=== PATIENT | female | born 1945 | race African-American/Black ===

== ENCOUNTER → 2016-12-14 | Outpatient (CLI) | payer MEDICARE, MEDICAID ==
[~2016-12-14] MED LIST: ASPI-1079 PO; CLOP75TA2 PO; EZ-HD(BARIUM SULFATE 135ML BTL) PO ONE; FERR256T PO; LOSA25TA3 PO; OMEP20CA4 PO; TRAM150C26 PO; UNKNOWN MEDICATIONS
== END | disposition home or self-care (01) ==
LOC: RAD 12:45
PROVIDERS: ATTEND Internal Medicine Endocrinology, Diabetes & Metabolism
DX: J98.4 Other disorders of lung (principal); R13.10 Dysphagia, unspecified
CPT/HCPCS: 74220

== ENCOUNTER → 2017-01-15 | Outpatient (CLI) | payer MEDICARE, MEDICAID ==
[~2017-01-15] MED LIST changes: -EZ-HD(BARIUM SULFATE 135ML BTL) PO ONE
== END | disposition home or self-care (01) ==
LOC: CT 08:18
PROVIDERS: ATTEND Surgery
DX: E04.1 Nontoxic single thyroid nodule (principal)
CPT/HCPCS: 70490

== ENCOUNTER 2017-01-18 09:10 | Emergency (ER) | payer MEDICARE, MEDICAID ==
[~2017-01-18] VITALS: Ht 162.6 cm; Wt 57.0 kg
[2017-01-18 10:38] LABS: BASOPHILS % 0.5 % (0.0-2.0); EOSINOPHILS % 2.2 % (0.0-5.0); HEMATOCRIT. 32.6 % (36.0-48.0); HEMOGLOBIN. 10.6 g/dL (12.0-16.0); LYMPHOCYTES % 23.8 % (20.0-50.0); MEAN CORPUSCULAR VOLUME 88.6 fL (81.0-99.0); MONOCYTES % 8.2 % (2.0-8.0); NEUTROPHILS % 65.3 % (40.0-76.0); PLATELET 230 x1000/uL (130-400); RED BLOOD CELL COUNT 3.68 mill/uL (4.2-5.4); RED CELL DISTRIBUTION WIDTH 14.7 % (11.6-14.6)
[2017-01-18 10:50] LABS: PROTHROMBIN TIME 10.5 sec
[2017-01-18 10:52] LABS: CARBON DIOXIDE 27 mEq/L (21-32); CHLORIDE 111 mEq/L (98-107)
[2017-01-18 11:40] LABS: CLARITY URINE CLEAR (CLEAR); COLOR URINE YELLOW (YELLOW); GLUCOSE URINE NEGATIVE (NEGATIVE); KETONES URINE NEGATIVE (NEGATIVE); LEUKOCYTE ESTERASE URINE NEGATIVE (NEGATIVE); NITRITE URINE NEGATIVE (NEGATIVE); OCCULT BLOOD URINE NEGATIVE (NEGATIVE); PROTEIN URINE NEGATIVE (NEGATIVE); SPECIFIC GRAVITY URINE 1.011 (1.005-1.030); UROBILINOGEN URINE 0.2 E.U./dL (0.2-1.0)
[2017-01-18 12:24] VITALS: BP 168/84
== END 2017-01-18 13:43 | disposition home or self-care (01) ==
LOC: ER 09:10 → CANBEDREQ 20:09
DX: K80.20 Calculus of gallbladder without cholecystitis without obstruction (principal); I10 Essential (primary) hypertension; J02.9 Acute pharyngitis, unspecified; I63.9 Cerebral infarction, unspecified; M19.90 Unspecified osteoarthritis, unspecified site; R13.10 Dysphagia, unspecified; Z99.3 Dependence on wheelchair; Z88.2 Allergy status to sulfonamides; Z79.82 Long term (current) use of aspirin
CPT/HCPCS: 36415; 74022; 80053; 81003; 83690; 85025; 85610; 85730; 93005; 99285

== ENCOUNTER → 2017-03-05 | Outpatient (CLI) | payer MEDICARE, MEDICAID ==
[~2017-03-05] MED LIST changes: +CLOP75TA16 PO; -CLOP75TA2 PO; -TRAM150C26 PO; +TRAM150C40 PO
[2017-03-05 10:26] LABS: BASOPHILS % 1.9 % (0.0-2.0); EOSINOPHILS % 2.8 % (0.0-5.0); HEMATOCRIT. 35.6 % (36.0-48.0); HEMOGLOBIN. 11.7 g/dL (12.0-16.0); MEAN CORPUSCULAR HEMOGLOBIN 28.2 pg (28.0-32.0); MEAN CORPUSCULAR VOLUME 85.6 fL (81.0-99.0); MEAN PLATELET VOLUME 6.8 fl (7.4-10.4); MONOCYTES % 7.7 % (2.0-8.0); NEUTROPHILS % 53.6 % (40.0-76.0); PLATELET 230 x1000/uL (130-400); RED BLOOD CELL COUNT 4.16 mill/uL (4.2-5.4); RED CELL DISTRIBUTION WIDTH 15.5 % (11.6-14.6)
[2017-03-05 10:31] LABS: CLARITY URINE CLEAR (CLEAR); COLOR URINE YELLOW (YELLOW); GLUCOSE URINE NEGATIVE (NEGATIVE); KETONES URINE NEGATIVE (NEGATIVE); LEUKOCYTE ESTERASE URINE NEGATIVE (NEGATIVE); NITRITE URINE NEGATIVE (NEGATIVE); OCCULT BLOOD URINE NEGATIVE (NEGATIVE); PH URINE 6.5 (4.5-8.0); PROTEIN URINE NEGATIVE (NEGATIVE); SPECIFIC GRAVITY URINE 1.018 (1.005-1.030)
[2017-03-05 10:57] LABS: CARBON DIOXIDE 28 mEq/L (21-32); CHLORIDE 108 mEq/L (98-107)
== END | disposition home or self-care (01) ==
LOC: LAB 09:53
DX: I10 Essential (primary) hypertension (principal); E04.1 Nontoxic single thyroid nodule
CPT/HCPCS: 36415; 80048; 81003; 85025

== ENCOUNTER → 2017-03-06 | Outpatient (CLI) | payer MEDICARE, MEDICAID | END | disposition home or self-care (01) | LOC: RAD 13:54 | DX: Z01.818 Encounter for other preprocedural examination (principal) | CPT/HCPCS: 71020 ==

== ENCOUNTER → 2017-10-09 | Outpatient (CLI) | payer MEDICARE, MEDICAID ==
[~2017-10-09] MED LIST changes: +DOCU-155 PO; +IOHEXOL-300 100 ML BOTTLE ONE; +LEVO500T2 PO; +PRED10TA23 PO; +TRAM150C25 PO; -TRAM150C40 PO; -UNKNOWN MEDICATIONS
== END | disposition home or self-care (01) ==
LOC: CT 09:31
PROVIDERS: ATTEND Anesthesiology Critical Care Medicine
DX: R90.82 White matter disease, unspecified (principal); I11.9 Hypertensive heart disease without heart failure; I67.82 Cerebral ischemia; J44.0 Chronic obstructive pulmonary disease with (acute) lower respiratory infection; Z79.82 Long term (current) use of aspirin; Z79.899 Other long term (current) drug therapy; Z86.73 Personal history of transient ischemic attack (TIA), and cerebral infarction without residual deficits
CPT/HCPCS: 70470; 93880; Q9967

== ENCOUNTER 2017-12-27 19:58 | Inpatient (IN) | payer MEDICARE, MEDICAID ==
[~2017-12-27] VITALS: Ht 160 cm; Wt 61.2 kg
[~2017-12-27 19:58] MED LIST changes: -ASPI-1079 PO; -IOHEXOL-300 100 ML BOTTLE ONE; -TRAM150C25 PO
[2017-12-27 21:27] LABS: BG BASE EXCESS -3.5 mmol/L (-2.0-2.0); BG DEOXYHEMOGLOBIN 5.6 % (0.0-5.0); BG FRACTION INSPIRED OXYGEN 100; BG HCO3 ACT 27.9 mmol/L (22.0-26.0); BG METHEMOGLOBIN 0.2 % (0.0-1.5); BG OXYGEN SATURATION 94.3 % (92.0-98.5); BG OXYHEMOGLOBIN 93.2 % (94.0-97.0); BG PCO2 88.3 mmHg (35.0-45.0); BG PH 7.117 (7.350-7.450); BG PO2 93.7 mmHg (75.0-100.0); BG SAMPLE SITE RIGHT RADIAL; BG TOTAL HEMOGLOBIN 12.8 g/dL (12.0-18.0); BG VENT MODE MASK - NRB
[2017-12-27] MEDS ORDERED: SUCCINYLCHOLINE CHLORIDE 200MG/10ML VIAL IV ONE (21:45)
[2017-12-27] MEDS ORDERED: ETOMIDATE 2MG/ML 10ML VIAL IV ONE (21:45)
[2017-12-27] MEDS ORDERED: PROPOFOL 10MG/ML 100ML 100 ML IV SCH (22:00)
[2017-12-27 22:23] LABS: BG CARBOXYHEMOGLOBIN 0.7 % (0.5-1.5); BG DEOXYHEMOGLOBIN 1.7 % (0.0-5.0); BG FRACTION INSPIRED OXYGEN 100; BG HCO3 ACT 25.7 mmol/L (22.0-26.0); BG METHEMOGLOBIN 0.3 % (0.0-1.5); BG OXYGEN SATURATION 98.3 % (92.0-98.5); BG OXYHEMOGLOBIN 97.3 % (94.0-97.0); BG PCO2 46.4 mmHg (35.0-45.0); BG PH 7.362 (7.350-7.450); BG PO2 119.1 mmHg (75.0-100.0); BG SAMPLE SITE LEFT RADIAL; BG TIDAL VOLUME(mL) 450 mL; BG TOTAL HEMOGLOBIN 12.6 g/dL (12.0-18.0); BG VENT MODE VENT - A/C; BG VENT RATE 14 set
[2017-12-27 23:16] LABS: HEMATOCRIT. 39.3 % (36.0-48.0); HEMOGLOBIN. 12.4 g/dL (12.0-16.0); MEAN CORPUSCULAR HEMOGLOBIN 26.4 pg (28.0-32.0); MEAN CORPUSCULAR VOLUME 83.4 fL (81.0-99.0); MEAN PLATELET VOLUME 7.5 fl (7.4-10.4); PLATELET 254 x1000/uL (130-400); RED CELL DISTRIBUTION WIDTH 16.6 % (11.6-14.6)
[2017-12-27 23:23] LABS: CHLORIDE 96 mEq/L (98-107); PROTHROMBIN TIME 10.3 sec (9.4-11.6)
[2017-12-27 23:30] LABS: AMMONIA 16 uMol/L (<32)
[2017-12-27] MEDS ORDERED: ASPIRIN 300MG SUPP PR ONE (23:30)
[2017-12-27 23:32] LABS: CREATINE KINASE 176 IU/L (26-192)
[2017-12-27 23:44] LABS: ETHANOL BLOOD < 10 mg/dL
[2017-12-28] VITALS (46 sets, daily range): BP systolic 80–141; BP diastolic 54–80
[2017-12-28] MEDS ORDERED: MIDAZOLAM HCL 2 MG/2 ML VIAL IV ONE (00:15)
[2017-12-28 01:01] LABS: CLARITY URINE CLEAR (CLEAR); COLOR URINE YELLOW (YELLOW); KETONES URINE TRACE (NEGATIVE); LEUKOCYTE ESTERASE URINE NEGATIVE (NEGATIVE); NITRITE URINE NEGATIVE (NEGATIVE); OCCULT BLOOD URINE NEGATIVE (NEGATIVE); PROTEIN URINE 1+ (NEGATIVE); SPECIFIC GRAVITY URINE 1.018 (1.005-1.030); UROBILINOGEN URINE 0.2 E.U./dL (0.2-1.0)
[2017-12-28 01:24] LABS: *AMPHETAMINES SCREEN URINE NEGATIVE (NEGATIVE); *BARBITURATES SCREEN URINE NEGATIVE (NEGATIVE); *BENZODIAZEPINES SCREEN URINE PRESUMTIVE POSITIVE (NEGATIVE); CANNABINOID URINE SCREEN PRESUMTIVE POSITIVE (NEGATIVE)
[2017-12-28 01:25] LABS: *COCAINE SCREEN URINE NEGATIVE (NEGATIVE); METHADONE URINE SCREEN NEGATIVE (NEGATIVE); OPIATES URINE SCREEN PRESUMTIVE POSITIVE (NEGATIVE)
[2017-12-28 01:28] LABS: PHENCYCLIDINE URINE SCREEN NEGATIVE (NEGATIVE)
[2017-12-28 02:46] LABS: PLATELET ESTIMATE NORMAL
[2017-12-28 14:45] LABS: BG CARBOXYHEMOGLOBIN 0.1 % (0.5-1.5); BG DEOXYHEMOGLOBIN 1.3 % (0.0-5.0); BG FRACTION INSPIRED OXYGEN 100; BG HCO3 ACT 23.7 mmol/L (22.0-26.0); BG METHEMOGLOBIN 0.1 % (0.0-1.5); BG OXYGEN SATURATION 98.7 % (92.0-98.5); BG OXYHEMOGLOBIN 98.5 % (94.0-97.0); BG PCO2 28.3 mmHg (35.0-45.0); BG PO2 139.3 mmHg (75.0-100.0); BG SAMPLE SITE RIGHT RADIAL; BG TIDAL VOLUME(mL) 450 mL; BG TOTAL HEMOGLOBIN 12.5 g/dL (12.0-18.0); BG VENT MODE VENT - A/C; BG VENT RATE 14 set
[2017-12-28] MEDS: PROPOFOL 10MG/ML 100ML 100 ML IV PRN (15:35)
[2017-12-28 16:30] LABS: CREATINE KINASE MB FRACTION 5.7 ng/mL (0.5-3.6)
[2017-12-28 16:53] LABS: BG BASE EXCESS 5.3 mmol/L (-2.0-2.0); BG CARBOXYHEMOGLOBIN 0.2 % (0.5-1.5); BG DEOXYHEMOGLOBIN 1.6 % (0.0-5.0); BG HCO3 ACT 27.1 mmol/L (22.0-26.0); BG METHEMOGLOBIN 0.1 % (0.0-1.5); BG OXYGEN SATURATION 98.4 % (92.0-98.5); BG OXYHEMOGLOBIN 98.1 % (94.0-97.0); BG PCO2 31.3 mmHg (35.0-45.0); BG PH 7.556 (7.350-7.450); BG PO2 117.2 mmHg (75.0-100.0); BG SAMPLE SITE RIGHT RADIAL; BG TIDAL VOLUME(mL) 450 mL; BG TOTAL HEMOGLOBIN 12.9 g/dL (12.0-18.0); BG VENT MODE VENT - A/C; BG VENT RATE 14 set
[2017-12-28 18:21] LABS: BG BASE EXCESS 2.7 mmol/L (-2.0-2.0); BG CARBOXYHEMOGLOBIN 0.5 % (0.5-1.5); BG DEOXYHEMOGLOBIN 2.2 % (0.0-5.0); BG METHEMOGLOBIN 0.3 % (0.0-1.5); BG OXYGEN SATURATION 97.8 % (92.0-98.5); BG PCO2 27.4 mmHg (35.0-45.0); BG PO2 100.5 mmHg (75.0-100.0); BG SAMPLE SITE RIGHT RADIAL; BG TIDAL VOLUME(mL) 450 mL; BG TOTAL HEMOGLOBIN 12.4 g/dL (12.0-18.0); BG VENT MODE VENT - A/C; BG VENT RATE 14 set
[2017-12-28] MEDS: DEXT 5%/0.45% NACL 1000ML 1,000 ML IV SCH (18:21)
[2017-12-28] MEDS: IPRATROPIUM/ALBUTEROL 0.5-3(2.5)MG/3ML NEB HHN SCH ×2 (20:20→23:50)
[2017-12-28 23:20] LABS: CREATINE KINASE MB FRACTION 2.9 ng/mL (0.5-3.6)
[2017-12-29] VITALS (87 sets, daily range): BP systolic 80–126; BP diastolic 40–72
[2017-12-29] MEDS: IPRATROPIUM/ALBUTEROL 0.5-3(2.5)MG/3ML NEB HHN SCH ×6 (03:18→23:36)
[2017-12-29] MEDS: PROPOFOL 10MG/ML 100ML 100 ML IV PRN ×2 (05:14→17:28)
[2017-12-29 05:16] LABS: BASOPHILS % 0.5 % (0.0-2.0); EOSINOPHILS % 0.2 % (0.0-5.0); HEMATOCRIT. 34.7 % (36.0-48.0); HEMOGLOBIN. 11.3 g/dL (12.0-16.0); LYMPHOCYTES % 8.8 % (20.0-50.0); MEAN CORPUSCULAR HEMOGLOBIN 26.5 pg (28.0-32.0); MEAN CORPUSCULAR VOLUME 81.5 fL (81.0-99.0); MEAN PLATELET VOLUME 7.8 fl (7.4-10.4); MONOCYTES % 8.9 % (2.0-8.0); NEUTROPHILS % 81.6 % (40.0-76.0); PLATELET 222 x1000/uL (130-400); RED BLOOD CELL COUNT 4.26 mill/uL (4.2-5.4); RED CELL DISTRIBUTION WIDTH 16.6 % (11.6-14.6)
[2017-12-29 05:40] LABS: CHLORIDE 103 mEq/L (98-107)
[2017-12-29 05:49] LABS: PHOSPHORUS 2.3 mg/dL (2.5-4.9)
[2017-12-29 05:52] LABS: CREATINE KINASE 324 IU/L (26-192)
[2017-12-29 05:55] LABS: CREATINE KINASE MB FRACTION 2.2 ng/mL (0.5-3.6)
[2017-12-29 08:12] LABS: BG BASE EXCESS 7.6 mmol/L (-2.0-2.0); BG CARBOXYHEMOGLOBIN 0.9 % (0.5-1.5); BG DEOXYHEMOGLOBIN 3.8 % (0.0-5.0); BG FRACTION INSPIRED OXYGEN 80; BG HCO3 ACT 30.8 mmol/L (22.0-26.0); BG METHEMOGLOBIN 0.1 % (0.0-1.5); BG OXYGEN SATURATION 96.2 % (92.0-98.5); BG OXYHEMOGLOBIN 95.2 % (94.0-97.0); BG PCO2 38.1 mmHg (35.0-45.0); BG PH 7.525 (7.350-7.450); BG PO2 81.1 mmHg (75.0-100.0); BG SAMPLE SITE RIGHT RADIAL; BG TIDAL VOLUME(mL) 450 mL; BG TOTAL HEMOGLOBIN 14.2 g/dL (12.0-18.0); BG VENT MODE VENT - A/C; BG VENT RATE 14 set
[2017-12-29] MEDS: ACETAMINOPHEN 325MG TABLET PO PRN (08:36)
[2017-12-29] MEDS: PANTOPRAZOLE SODIUM 40 MG/VIAL IV SCH (08:36)
[2017-12-29] MEDS: DEXT 5%/0.45% NACL 1000ML 1,000 ML IV SCH (10:18)
[2017-12-29] MEDS ORDERED: CALCIUM CHLORIDE 1,000 MG in DEXT 5% WATER 90 ML IV NR (13:00)
[2017-12-29] MEDS: POTASSIUM-SODIUM PHOSPHATE POWDER PACKET PO SCH ×2 (13:45→17:27)
[2017-12-29] MEDS: DEXT 5%/0.45% NACL KCL 10MEQ/L 1,000 ML IV SCH (13:45)
[2017-12-29] MEDS ORDERED: PROPOFOL 10MG/ML 100ML 100 ML IV PRN (14:00)
[2017-12-29] MEDS: ENOXAPARIN 40MG/0.4ML SYR SUBCUT SCH (15:35)
[2017-12-29] MEDS: HYDROMORPHONE HCL/PF 2MG/ML CPJ IV PRN (15:51)
[2017-12-30] VITALS (70 sets, daily range): BP systolic 87–130; BP diastolic 47–74
[2017-12-30] MEDS: PROPOFOL 10MG/ML 100ML 100 ML IV PRN ×3 (01:31→20:29)
[2017-12-30] MEDS: IPRATROPIUM/ALBUTEROL 0.5-3(2.5)MG/3ML NEB HHN SCH ×5 (03:09→20:00)
[2017-12-30 04:49] LABS: BASOPHILS % 1.2 % (0.0-2.0); EOSINOPHILS % 0.7 % (0.0-5.0); HEMATOCRIT. 32.2 % (36.0-48.0); HEMOGLOBIN. 10.2 g/dL (12.0-16.0); LYMPHOCYTES % 11.9 % (20.0-50.0); MEAN CORPUSCULAR VOLUME 81.7 fL (81.0-99.0); MEAN PLATELET VOLUME 8.1 fl (7.4-10.4); MONOCYTES % 6.5 % (2.0-8.0); NEUTROPHILS % 79.7 % (40.0-76.0); PLATELET 200 x1000/uL (130-400); RED BLOOD CELL COUNT 3.93 mill/uL (4.2-5.4)
[2017-12-30 04:55] LABS: CHLORIDE 107 mEq/L (98-107)
[2017-12-30 05:01] LABS: PHOSPHORUS 2.1 mg/dL (2.5-4.9)
[2017-12-30] MEDS: PANTOPRAZOLE SODIUM 40 MG/VIAL IV SCH (08:09)
[2017-12-30] MEDS: HYDROMORPHONE HCL/PF 2MG/ML CPJ IV PRN ×2 (08:10→13:05)
[2017-12-30] MEDS: DEXT 5%/0.45% NACL KCL 10MEQ/L 1,000 ML IV SCH (08:11)
[2017-12-30] MEDS: ENOXAPARIN 40MG/0.4ML SYR SUBCUT SCH (08:11)
[2017-12-30 08:19] LABS: BG BASE EXCESS 5.9 mmol/L (-2.0-2.0); BG CARBOXYHEMOGLOBIN 0.2 % (0.5-1.5); BG DEOXYHEMOGLOBIN 1.4 % (0.0-5.0); BG FRACTION INSPIRED OXYGEN 80; BG HCO3 ACT 28.5 mmol/L (22.0-26.0); BG METHEMOGLOBIN 0.2 % (0.0-1.5); BG OXYGEN SATURATION 98.6 % (92.0-98.5); BG OXYHEMOGLOBIN 98.2 % (94.0-97.0); BG PCO2 34.2 mmHg (35.0-45.0); BG PH 7.538 (7.350-7.450); BG PO2 128.5 mmHg (75.0-100.0); BG SAMPLE SITE RIGHT BRACHIAL; BG TIDAL VOLUME(mL) 450 mL; BG TOTAL HEMOGLOBIN 11.8 g/dL (12.0-18.0); BG VENT MODE VENT - A/C; BG VENT RATE 14 set
[2017-12-30 10:23] LABS: BG BASE EXCESS 4.9 mmol/L (-2.0-2.0); BG CARBOXYHEMOGLOBIN 0.4 % (0.5-1.5); BG DEOXYHEMOGLOBIN 2.7 % (0.0-5.0); BG FRACTION INSPIRED OXYGEN 50; BG HCO3 ACT 28.4 mmol/L (22.0-26.0); BG METHEMOGLOBIN 0.1 % (0.0-1.5); BG OXYGEN SATURATION 97.3 % (92.0-98.5); BG OXYHEMOGLOBIN 96.8 % (94.0-97.0); BG PCO2 37.8 mmHg (35.0-45.0); BG PH 7.494 (7.350-7.450); BG PO2 92.5 mmHg (75.0-100.0); BG SAMPLE SITE RIGHT RADIAL; BG TIDAL VOLUME(mL) 450 mL; BG TOTAL HEMOGLOBIN 11.2 g/dL (12.0-18.0); BG VENT MODE VENT - A/C; BG VENT RATE 14 set
[2017-12-30 12:51] LABS: BG BASE EXCESS 7.6 mmol/L (-2.0-2.0); BG CARBOXYHEMOGLOBIN 0.7 % (0.5-1.5); BG DEOXYHEMOGLOBIN 6.8 % (0.0-5.0); BG FRACTION INSPIRED OXYGEN 50; BG METHEMOGLOBIN 0.2 % (0.0-1.5); BG OXYGEN SATURATION 93.1 % (92.0-98.5); BG OXYHEMOGLOBIN 92.3 % (94.0-97.0); BG PCO2 29.9 mmHg (35.0-45.0); BG PH 7.605 (7.350-7.450); BG SAMPLE SITE RIGHT RADIAL; BG TIDAL VOLUME(mL) 450 mL; BG VENT MODE VENT - A/C; BG VENT RATE 14 set
[2017-12-30] MEDS ORDERED: LIDOCAINE HCL/PF 1% 2ML VIAL ONE (14:15)
[2017-12-30] MEDS ORDERED: POTASSIUM-SODIUM PHOSPHATE POWDER PACKET PO NR (15:15)
[2017-12-30] MEDS ORDERED: CALCIUM CHLORIDE 1,000 MG in DEXT 5% WATER 90 ML IV NR (16:00)
[2017-12-30 17:27] LABS: BG BASE EXCESS 4.3 mmol/L (-2.0-2.0); BG CARBOXYHEMOGLOBIN 0.5 % (0.5-1.5); BG DEOXYHEMOGLOBIN 2.3 % (0.0-5.0); BG FRACTION INSPIRED OXYGEN 60; BG HCO3 ACT 28.1 mmol/L (22.0-26.0); BG METHEMOGLOBIN 0.2 % (0.0-1.5); BG OXYGEN SATURATION 97.7 % (92.0-98.5); BG PH 7.475 (7.350-7.450); BG PO2 101.5 mmHg (75.0-100.0); BG SAMPLE SITE RIGHT BRACHIAL; BG TIDAL VOLUME(mL) 450 mL; BG TOTAL HEMOGLOBIN 11.2 g/dL (12.0-18.0); BG VENT MODE VENT - A/C; BG VENT RATE 14 set
[2017-12-31] VITALS (65 sets, daily range): BP systolic 87–128; BP diastolic 42–96
[2017-12-31] MEDS: IPRATROPIUM/ALBUTEROL 0.5-3(2.5)MG/3ML NEB HHN SCH ×7 (00:14→23:47)
[2017-12-31] MEDS: PROPOFOL 10MG/ML 100ML 100 ML IV PRN ×3 (01:38→21:51)
[2017-12-31 05:38] LABS: HEMATOCRIT. 31.3 % (36.0-48.0); MEAN CORPUSCULAR HEMOGLOBIN 26.4 pg (28.0-32.0); MEAN CORPUSCULAR VOLUME 82.2 fL (81.0-99.0); MEAN PLATELET VOLUME 8.8 fl (7.4-10.4); PLATELET 197 x1000/uL (130-400); RED CELL DISTRIBUTION WIDTH 16.9 % (11.6-14.6)
[2017-12-31 05:46] LABS: CHLORIDE 104 mEq/L (98-107)
[2017-12-31 05:54] LABS: PHOSPHORUS 2.9 mg/dL (2.5-4.9)
[2017-12-31 05:55] LABS: TOTAL IRON BINDING CAPACITY 282 ug/dL (250-450)
[2017-12-31 05:57] LABS: T4 FREE 1.29 ng/dL (0.76-1.46)
[2017-12-31 07:07] LABS: PLATELET ESTIMATE NORMAL
[2017-12-31 08:35] LABS: BG BASE EXCESS 5.5 mmol/L (-2.0-2.0); BG CARBOXYHEMOGLOBIN 0.3 % (0.5-1.5); BG DEOXYHEMOGLOBIN 1.7 % (0.0-5.0); BG FRACTION INSPIRED OXYGEN 60; BG HCO3 ACT 28.2 mmol/L (22.0-26.0); BG METHEMOGLOBIN 0.3 % (0.0-1.5); BG OXYGEN SATURATION 98.3 % (92.0-98.5); BG OXYHEMOGLOBIN 97.7 % (94.0-97.0); BG PCO2 34.3 mmHg (35.0-45.0); BG PH 7.533 (7.350-7.450); BG PO2 108.4 mmHg (75.0-100.0); BG SAMPLE SITE RIGHT BRACHIAL; BG TIDAL VOLUME(mL) 450 mL; BG TOTAL HEMOGLOBIN 10.3 g/dL (12.0-18.0); BG VENT MODE VENT - A/C; BG VENT RATE 14 set
[2017-12-31] MEDS: ENOXAPARIN 40MG/0.4ML SYR SUBCUT SCH (08:55)
[2017-12-31] MEDS: DEXT 5%/0.45% NACL KCL 10MEQ/L 1,000 ML IV SCH (08:55)
[2017-12-31] MEDS: PANTOPRAZOLE SODIUM 40 MG/VIAL IV SCH (08:55)
[2017-12-31 15:31] LABS: BG BASE EXCESS 5.3 mmol/L (-2.0-2.0); BG CARBOXYHEMOGLOBIN 0.3 % (0.5-1.5); BG DEOXYHEMOGLOBIN 3.7 % (0.0-5.0); BG FRACTION INSPIRED OXYGEN 40; BG HCO3 ACT 29.3 mmol/L (22.0-26.0); BG METHEMOGLOBIN 0.1 % (0.0-1.5); BG OXYGEN SATURATION 96.3 % (92.0-98.5); BG OXYHEMOGLOBIN 95.9 % (94.0-97.0); BG PCO2 40.4 mmHg (35.0-45.0); BG PH 7.478 (7.350-7.450); BG PO2 84.6 mmHg (75.0-100.0); BG SAMPLE SITE RIGHT RADIAL; BG TIDAL VOLUME(mL) 450 mL; BG TOTAL HEMOGLOBIN 10.5 g/dL (12.0-18.0); BG VENT MODE VENT - A/C; BG VENT RATE 14 set
[2017-12-31] MEDS: PIPERACILLIN/TAZ 3.375G PREMIX 50 ML IV SCH ×2 (15:58→22:59)
[2017-12-31] MEDS: ATORVASTATIN CALCIUM 40MG TABLET NG SCH (21:50)
[2018-01-01] VITALS (95 sets, daily range): BP systolic 97–165; BP diastolic 50–86
[2018-01-01] MEDS: IPRATROPIUM/ALBUTEROL 0.5-3(2.5)MG/3ML NEB HHN SCH ×5 (04:10→20:16)
[2018-01-01 05:31] LABS: BASOPHILS % 0.4 % (0.0-2.0); EOSINOPHILS % 0.8 % (0.0-5.0); HEMATOCRIT. 29.5 % (36.0-48.0); HEMOGLOBIN. 9.2 g/dL (12.0-16.0); LYMPHOCYTES % 8.3 % (20.0-50.0); MEAN CORPUSCULAR VOLUME 83.3 fL (81.0-99.0); MONOCYTES % 9.7 % (2.0-8.0); NEUTROPHILS % 80.8 % (40.0-76.0); RED BLOOD CELL COUNT 3.55 mill/uL (4.2-5.4); RED CELL DISTRIBUTION WIDTH 16.8 % (11.6-14.6)
[2018-01-01 05:39] LABS: CHLORIDE 107 mEq/L (98-107)
[2018-01-01] MEDS: PROPOFOL 10MG/ML 100ML 100 ML IV PRN ×2 (05:53→23:13)
[2018-01-01 05:54] LABS: LDL CHOLESTEROL 64 mg/dL (5-100); PHOSPHORUS 2.7 mg/dL (2.5-4.9)
[2018-01-01 05:56] LABS: HDL CHOLESTEROL 42 mg/dL (40-59)
[2018-01-01] MEDS: DEXT 5%/0.45% NACL KCL 10MEQ/L 1,000 ML IV SCH (06:33)
[2018-01-01] MEDS: PIPERACILLIN/TAZ 3.375G PREMIX 50 ML IV SCH ×3 (06:33→20:59)
[2018-01-01 07:11] LABS: BG BASE EXCESS 2.2 mmol/L (-2.0-2.0); BG CARBOXYHEMOGLOBIN 0.1 % (0.5-1.5); BG DEOXYHEMOGLOBIN 2.1 % (0.0-5.0); BG HCO3 ACT 25.5 mmol/L (22.0-26.0); BG METHEMOGLOBIN 0.2 % (0.0-1.5); BG OXYGEN SATURATION 97.9 % (92.0-98.5); BG OXYHEMOGLOBIN 97.6 % (94.0-97.0); BG PCO2 34.6 mmHg (35.0-45.0); BG PH 7.485 (7.350-7.450); BG SAMPLE SITE RIGHT RADIAL; BG TIDAL VOLUME(mL) 450 mL; BG TOTAL HEMOGLOBIN 9.7 g/dL (12.0-18.0); BG VENT MODE VENT - A/C; BG VENT RATE 14 set
[2018-01-01] MEDS: PANTOPRAZOLE SODIUM 40 MG/VIAL IV SCH (08:55)
[2018-01-01] MEDS: ENOXAPARIN 40MG/0.4ML SYR SUBCUT SCH (08:55)
[2018-01-01 10:33] LABS: BG BASE EXCESS 4.4 mmol/L (-2.0-2.0); BG CARBOXYHEMOGLOBIN 0.3 % (0.5-1.5); BG DEOXYHEMOGLOBIN 2.6 % (0.0-5.0); BG FRACTION INSPIRED OXYGEN 50; BG HCO3 ACT 27.8 mmol/L (22.0-26.0); BG METHEMOGLOBIN 0.3 % (0.0-1.5); BG OXYGEN SATURATION 97.4 % (92.0-98.5); BG OXYHEMOGLOBIN 96.8 % (94.0-97.0); BG PCO2 36.9 mmHg (35.0-45.0); BG PH 7.495 (7.350-7.450); BG PO2 98.1 mmHg (75.0-100.0); BG PRESSURE SUPPORT 10; BG SAMPLE SITE RIGHT RADIAL; BG TIDAL VOLUME(mL) 450 mL; BG TOTAL HEMOGLOBIN 9.5 g/dL (12.0-18.0); BG VENT MODE VENT - SIMV; BG VENT RATE 4 set
[2018-01-01] MEDS: HYDROMORPHONE HCL/PF 2MG/ML CPJ IV PRN (11:28)
[2018-01-01 12:03] LABS: PLATELET 184 x1000/uL (130-400)
[2018-01-01 13:27] LABS: BG BASE EXCESS 5.4 mmol/L (-2.0-2.0); BG CARBOXYHEMOGLOBIN 0.2 % (0.5-1.5); BG CPAP (cmH2O) 0 cm(H2O); BG DEOXYHEMOGLOBIN 0.8 % (0.0-5.0); BG FRACTION INSPIRED OXYGEN 50; BG HCO3 ACT 29.8 mmol/L (22.0-26.0); BG METHEMOGLOBIN 0.2 % (0.0-1.5); BG OXYGEN SATURATION 99.2 % (92.0-98.5); BG OXYHEMOGLOBIN 98.8 % (94.0-97.0); BG PCO2 42.4 mmHg (35.0-45.0); BG PH 7.464 (7.350-7.450); BG PRESSURE SUPPORT 12; BG SAMPLE SITE RIGHT RADIAL; BG TOTAL HEMOGLOBIN 11.7 g/dL (12.0-18.0); BG VENT MODE VENT - CPAP
[2018-01-01] MEDS ORDERED: ETOMIDATE 2MG/ML 10ML VIAL IV ONE (14:42)
[2018-01-01] MEDS ORDERED: SUCCINYLCHOLINE CHLORIDE 200MG/10ML VIAL IV ONE (14:42)
[2018-01-01] MEDS ORDERED: RACEPINEPHRINE 2.25% 0.5ML NEB VIAL HHN ONE (16:15)
[2018-01-01 17:18] LABS: BG BASE EXCESS 1.5 mmol/L (-2.0-2.0); BG CARBOXYHEMOGLOBIN 0.2 % (0.5-1.5); BG DEOXYHEMOGLOBIN 2.3 % (0.0-5.0); BG HCO3 ACT 27.1 mmol/L (22.0-26.0); BG METHEMOGLOBIN 0.3 % (0.0-1.5); BG OXYGEN SATURATION 97.7 % (92.0-98.5); BG OXYHEMOGLOBIN 97.2 % (94.0-97.0); BG PCO2 46.9 mmHg (35.0-45.0); BG PH 7.379 (7.350-7.450); BG PO2 108.7 mmHg (75.0-100.0); BG SAMPLE SITE RIGHT RADIAL; BG TIDAL VOLUME(mL) 450 mL; BG TOTAL HEMOGLOBIN 10.6 g/dL (12.0-18.0); BG VENT MODE VENT - A/C; BG VENT RATE 12 set
[2018-01-01] MEDS: ATORVASTATIN CALCIUM 40MG TABLET NG SCH (20:59)
[2018-01-02] VITALS (93 sets, daily range): BP systolic 84–119; BP diastolic 34–69
[2018-01-02] MEDS: IPRATROPIUM/ALBUTEROL 0.5-3(2.5)MG/3ML NEB HHN SCH ×7 (00:10→23:51)
[2018-01-02] MEDS: DEXT 5%/0.45% NACL KCL 10MEQ/L 1,000 ML IV SCH ×2 (02:35→17:06)
[2018-01-02] MEDS: PIPERACILLIN/TAZ 3.375G PREMIX 50 ML IV SCH ×4 (02:36→20:29)
[2018-01-02] MEDS: HYDROMORPHONE HCL/PF 2MG/ML CPJ IV PRN ×2 (03:00→14:48)
[2018-01-02 05:36] LABS: BASOPHILS % 0.5 % (0.0-2.0); EOSINOPHILS % 2.3 % (0.0-5.0); HEMATOCRIT. 25.5 % (36.0-48.0); HEMOGLOBIN. 8.3 g/dL (12.0-16.0); LYMPHOCYTES % 11.1 % (20.0-50.0); MEAN CORPUSCULAR HEMOGLOBIN 26.5 pg (28.0-32.0); MEAN CORPUSCULAR VOLUME 81.2 fL (81.0-99.0); MEAN PLATELET VOLUME 8.5 fl (7.4-10.4); MONOCYTES % 11.1 % (2.0-8.0); PLATELET 190 x1000/uL (130-400); RED BLOOD CELL COUNT 3.14 mill/uL (4.2-5.4); RED CELL DISTRIBUTION WIDTH 16.8 % (11.6-14.6)
[2018-01-02 05:40] LABS: CHLORIDE 109 mEq/L (98-107)
[2018-01-02 05:49] LABS: PHOSPHORUS 1.9 mg/dL (2.5-4.9)
[2018-01-02] MEDS: PROPOFOL 10MG/ML 100ML 100 ML IV PRN ×3 (06:29→22:50)
[2018-01-02 09:06] LABS: BG CARBOXYHEMOGLOBIN 0.3 % (0.5-1.5); BG FRACTION INSPIRED OXYGEN 50; BG HCO3 ACT 26.2 mmol/L (22.0-26.0); BG METHEMOGLOBIN 0.1 % (0.0-1.5); BG OXYHEMOGLOBIN 98.6 % (94.0-97.0); BG PCO2 31.8 mmHg (35.0-45.0); BG PH 7.533 (7.350-7.450); BG PO2 142.6 mmHg (75.0-100.0); BG SAMPLE SITE LEFT RADIAL; BG TIDAL VOLUME(mL) 450 mL; BG TOTAL HEMOGLOBIN 13.1 g/dL (12.0-18.0); BG VENT MODE VENT - A/C; BG VENT RATE 12 set
[2018-01-02] MEDS: PANTOPRAZOLE SODIUM 40 MG/VIAL IV SCH (09:38)
[2018-01-02] MEDS: ENOXAPARIN 40MG/0.4ML SYR SUBCUT SCH (09:39)
[2018-01-02] MEDS ORDERED: POTASSIUM PHOS,M-BASIC-D-BASIC 10 MMOL in DEXT 5% WATER 246.6667 ML IV SCH (11:00)
[2018-01-02] MEDS: ATORVASTATIN CALCIUM 40MG TABLET NG SCH (20:29)
[2018-01-03] VITALS (93 sets, daily range): BP systolic 89–130; BP diastolic 42–69
[2018-01-03] MEDS: PIPERACILLIN/TAZ 3.375G PREMIX 50 ML IV SCH ×4 (02:42→21:27)
[2018-01-03] MEDS: IPRATROPIUM/ALBUTEROL 0.5-3(2.5)MG/3ML NEB HHN SCH ×4 (03:20→16:47)
[2018-01-03 05:49] LABS: BASOPHILS % 0.6 % (0.0-2.0); EOSINOPHILS % 2.5 % (0.0-5.0); HEMOGLOBIN. 8.9 g/dL (12.0-16.0); MEAN PLATELET VOLUME 8.8 fl (7.4-10.4); MONOCYTES % 10.9 % (2.0-8.0); PLATELET 247 x1000/uL (130-400); RED BLOOD CELL COUNT 3.41 mill/uL (4.2-5.4); RED CELL DISTRIBUTION WIDTH 16.5 % (11.6-14.6)
[2018-01-03 06:33] LABS: PHOSPHORUS 2.5 mg/dL (2.5-4.9)
[2018-01-03 07:24] LABS: BG BASE EXCESS 2.2 mmol/L (-2.0-2.0); BG CARBOXYHEMOGLOBIN 0.1 % (0.5-1.5); BG DEOXYHEMOGLOBIN 1.3 % (0.0-5.0); BG HCO3 ACT 25.2 mmol/L (22.0-26.0); BG METHEMOGLOBIN 0.3 % (0.0-1.5); BG OXYGEN SATURATION 98.7 % (92.0-98.5); BG OXYHEMOGLOBIN 98.3 % (94.0-97.0); BG PCO2 32.8 mmHg (35.0-45.0); BG PH 7.503 (7.350-7.450); BG PO2 127.4 mmHg (75.0-100.0); BG SAMPLE SITE RIGHT BRACHIAL; BG TIDAL VOLUME(mL) 450 mL; BG TOTAL HEMOGLOBIN 8.7 g/dL (12.0-18.0); BG VENT MODE VENT - A/C; BG VENT RATE 12 set
[2018-01-03] MEDS: PROPOFOL 10MG/ML 100ML 100 ML IV PRN (07:36)
[2018-01-03 08:20] LABS: CHLORIDE 108 mEq/L (98-107)
[2018-01-03] MEDS: ENOXAPARIN 40MG/0.4ML SYR SUBCUT SCH (09:38)
[2018-01-03] MEDS: PANTOPRAZOLE SODIUM 40 MG/VIAL IV SCH (09:38)
[2018-01-03] MEDS ORDERED: CALCIUM GLUCONATE 1,000 MG in DEXTROSE 5% WATER 50 ML IV NR (13:00)
[2018-01-03] MEDS: DEXT 5%/0.45% NACL KCL 10MEQ/L 1,000 ML IV SCH (13:00)
[2018-01-03] MEDS: KCL 20MEQ/100ML PREMIX 100 ML IV SCH ×2 (13:05→15:00)
[2018-01-03] MEDS ORDERED: LIDOCAINE HCL 1% 20ML VIAL (Pyxis) INJ ONE (13:31)
[2018-01-03] MEDS: ACETAMINOPHEN 325MG TABLET PO PRN (14:39)
[2018-01-03] MEDS ORDERED: PROPOFOL 10MG/ML 100ML 100 ML IV PRN (17:15)
[2018-01-03] MEDS ORDERED: LORAZEPAM 2MG/ML CPJ IV PRN (19:00)
[2018-01-03] MEDS: ATORVASTATIN CALCIUM 40MG TABLET NG SCH (21:27)
[2018-01-03] MEDS: IRON SUCROSE COMPLEX 100 MG/5 ML ML IV SCH (21:27)
[2018-01-04] VITALS (91 sets, daily range): BP systolic 92–143; BP diastolic 43–95
[2018-01-04] MEDS: IPRATROPIUM/ALBUTEROL 0.5-3(2.5)MG/3ML NEB HHN SCH ×4 (01:09→23:50)
[2018-01-04] MEDS: ACETAMINOPHEN 325MG TABLET PO PRN ×3 (02:17→21:10)
[2018-01-04] MEDS: PIPERACILLIN/TAZ 3.375G PREMIX 50 ML IV SCH ×4 (02:18→20:16)
[2018-01-04] MEDS: PANTOPRAZOLE SODIUM 40 MG/VIAL IV SCH (08:12)
[2018-01-04] MEDS: ENOXAPARIN 40MG/0.4ML SYR SUBCUT SCH (08:13)
[2018-01-04 08:16] LABS: BG BASE EXCESS 1.2 mmol/L (-2.0-2.0); BG CARBOXYHEMOGLOBIN 0.4 % (0.5-1.5); BG DEOXYHEMOGLOBIN 4.1 % (0.0-5.0); BG FRACTION INSPIRED OXYGEN 30; BG HCO3 ACT 25.1 mmol/L (22.0-26.0); BG METHEMOGLOBIN 0.1 % (0.0-1.5); BG OXYGEN SATURATION 95.9 % (92.0-98.5); BG OXYHEMOGLOBIN 95.4 % (94.0-97.0); BG PH 7.449 (7.350-7.450); BG PO2 78.4 mmHg (75.0-100.0); BG PRESSURE SUPPORT 12; BG SAMPLE SITE RIGHT BRACHIAL; BG TIDAL VOLUME(mL) 450 mL; BG VENT MODE VENT - SIMV; BG VENT RATE 9 set
[2018-01-04] MEDS ORDERED: POTASSIUM CHLORIDE 20MEQ/PACKET PO NR (10:30)
[2018-01-04] MEDS: SODIUM CHL 0.45% + KCL 20MEQ/L 1,000 ML IV SCH (13:02)
[2018-01-04] MEDS: IRON SUCROSE COMPLEX 100 MG/5 ML ML IV SCH (20:16)
[2018-01-04] MEDS: ATORVASTATIN CALCIUM 40MG TABLET NG SCH (20:16)
[2018-01-05] VITALS (58 sets, daily range): BP systolic 99–134; BP diastolic 50–85
[2018-01-05] MEDS: SODIUM CHL 0.45% + KCL 20MEQ/L 1,000 ML IV SCH ×2 (01:14→14:38)
[2018-01-05] MEDS: PIPERACILLIN/TAZ 3.375G PREMIX 50 ML IV SCH ×4 (01:14→20:11)
[2018-01-05] MEDS: IPRATROPIUM/ALBUTEROL 0.5-3(2.5)MG/3ML NEB HHN SCH ×5 (04:00→20:30)
[2018-01-05 05:40] LABS: BASOPHILS % 0.9 % (0.0-2.0); HEMATOCRIT. 25.7 % (36.0-48.0); HEMOGLOBIN. 8.2 g/dL (12.0-16.0); LYMPHOCYTES % 12.7 % (20.0-50.0); MEAN CORPUSCULAR HEMOGLOBIN 26.3 pg (28.0-32.0); MEAN CORPUSCULAR VOLUME 82.1 fL (81.0-99.0); MEAN PLATELET VOLUME 8.1 fl (7.4-10.4); MONOCYTES % 6.4 % (2.0-8.0); PLATELET 339 x1000/uL (130-400); RED BLOOD CELL COUNT 3.13 mill/uL (4.2-5.4); RED CELL DISTRIBUTION WIDTH 16.7 % (11.6-14.6)
[2018-01-05 05:45] LABS: CHLORIDE 109 mEq/L (98-107)
[2018-01-05] MEDS: PANTOPRAZOLE SODIUM 40 MG/VIAL IV SCH (08:25)
[2018-01-05] MEDS: ENOXAPARIN 40MG/0.4ML SYR SUBCUT SCH (08:26)
[2018-01-05] MEDS ORDERED: KCL 20MEQ/100ML PREMIX 100 ML IV ONE (12:45)
[2018-01-05] MEDS: IRON SUCROSE COMPLEX 100 MG/5 ML ML IV SCH (20:11)
[2018-01-05] MEDS: ATORVASTATIN CALCIUM 40MG TABLET NG SCH (20:11)
[2018-01-06] VITALS (33 sets, daily range): BP systolic 100–142; BP diastolic 52–82
[2018-01-06] MEDS: IPRATROPIUM/ALBUTEROL 0.5-3(2.5)MG/3ML NEB HHN SCH ×6 (00:43→20:18)
[2018-01-06] MEDS: PIPERACILLIN/TAZ 3.375G PREMIX 50 ML IV SCH ×4 (02:07→20:08)
[2018-01-06] MEDS: SODIUM CHL 0.45% + KCL 20MEQ/L 1,000 ML IV SCH ×2 (02:07→15:29)
[2018-01-06 04:27] LABS: HEMATOCRIT 24.7 % (36.0-48.0)
[2018-01-06] MEDS: PANTOPRAZOLE SODIUM 40 MG/VIAL IV SCH (09:02)
[2018-01-06] MEDS: ATORVASTATIN CALCIUM 40MG TABLET NG SCH (20:08)
[2018-01-06] MEDS: ACETAMINOPHEN 325MG TABLET PO PRN (21:50)
[2018-01-07] VITALS (23 sets, daily range): BP systolic 103–145; BP diastolic 56–93
[2018-01-07] MEDS: IPRATROPIUM/ALBUTEROL 0.5-3(2.5)MG/3ML NEB HHN SCH ×7 (00:25→23:53)
[2018-01-07] MEDS: PIPERACILLIN/TAZ 3.375G PREMIX 50 ML IV SCH ×4 (01:36→22:41)
[2018-01-07] MEDS: SODIUM CHL 0.45% + KCL 20MEQ/L 1,000 ML IV SCH ×2 (05:22→21:34)
[2018-01-07 05:40] LABS: BASOPHILS % 0.9 % (0.0-2.0); EOSINOPHILS % 1.8 % (0.0-5.0); HEMATOCRIT. 24.6 % (36.0-48.0); MEAN CORPUSCULAR HEMOGLOBIN 26.5 pg (28.0-32.0); MEAN CORPUSCULAR VOLUME 81.1 fL (81.0-99.0); MEAN PLATELET VOLUME 7.6 fl (7.4-10.4); MONOCYTES % 5.3 % (2.0-8.0); PLATELET 457 x1000/uL (130-400); RED BLOOD CELL COUNT 3.04 mill/uL (4.2-5.4); RED CELL DISTRIBUTION WIDTH 16.4 % (11.6-14.6)
[2018-01-07 05:49] LABS: CHLORIDE 111 mEq/L (98-107)
[2018-01-07 07:02] LABS: HEPATITIS B SURFACE ANTIGEN NEGATIVE
[2018-01-07 07:32] LABS: HEPATITIS A AB IGM NEGATIVE (NEGATIVE)
[2018-01-07] MEDS ORDERED: LIDOCAINE HCL/EPINEPHRINE 1%-EPI 1:100,000 20 ML VIAL ONE (08:24)
[2018-01-07 08:29] LABS: HEPATITIS B CORE AB IGM Equiv
[2018-01-07] MEDS: PANTOPRAZOLE SODIUM 40 MG/VIAL IV SCH (09:11)
[2018-01-07 09:14] LABS: BG BASE EXCESS 0.7 mmol/L (-2.0-2.0); BG CARBOXYHEMOGLOBIN 0.3 % (0.5-1.5); BG DEOXYHEMOGLOBIN 2.4 % (0.0-5.0); BG FRACTION INSPIRED OXYGEN 30; BG HCO3 ACT 24.9 mmol/L (22.0-26.0); BG METHEMOGLOBIN 1.2 % (0.0-1.5); BG OXYGEN SATURATION 97.6 % (92.0-98.5); BG OXYHEMOGLOBIN 96.1 % (94.0-97.0); BG PCO2 37.6 mmHg (35.0-45.0); BG PH 7.438 (7.350-7.450); BG PO2 109.6 mmHg (75.0-100.0); BG PRESSURE SUPPORT 10; BG SAMPLE SITE RIGHT RADIAL; BG TIDAL VOLUME(mL) 450 mL; BG TOTAL HEMOGLOBIN 9.3 g/dL (12.0-18.0); BG VENT MODE VENT - SIMV; BG VENT RATE 7 set
[2018-01-07] MEDS: ACETAMINOPHEN 325MG TABLET PO PRN (11:23)
[2018-01-07] MEDS: ATORVASTATIN CALCIUM 40MG TABLET NG SCH (22:04)
[2018-01-08] VITALS (12 sets, daily range): BP systolic 110–144; BP diastolic 51–78
[2018-01-08] MEDS: IPRATROPIUM/ALBUTEROL 0.5-3(2.5)MG/3ML NEB HHN SCH ×5 (04:47→20:19)
[2018-01-08 07:52] LABS: BASOPHILS % 1.1 % (0.0-2.0); EOSINOPHILS % 1.2 % (0.0-5.0); HEMATOCRIT. 25.7 % (36.0-48.0); HEMOGLOBIN. 8.5 g/dL (12.0-16.0); LYMPHOCYTES % 12.2 % (20.0-50.0); MEAN CORPUSCULAR HEMOGLOBIN 26.8 pg (28.0-32.0); MEAN CORPUSCULAR VOLUME 81.1 fL (81.0-99.0); MEAN PLATELET VOLUME 7.6 fl (7.4-10.4); MONOCYTES % 5.6 % (2.0-8.0); NEUTROPHILS % 79.9 % (40.0-76.0); PLATELET 556 x1000/uL (130-400); RED BLOOD CELL COUNT 3.17 mill/uL (4.2-5.4); RED CELL DISTRIBUTION WIDTH 16.8 % (11.6-14.6)
[2018-01-08 07:55] LABS: CHLORIDE 109 mEq/L (98-107)
[2018-01-08] MEDS: PANTOPRAZOLE SODIUM 40 MG/VIAL IV SCH (08:41)
[2018-01-08] MEDS: SODIUM CHL 0.45% + KCL 20MEQ/L 1,000 ML IV SCH ×2 (08:42→21:40)
[2018-01-08] MEDS: ACETAMINOPHEN 325MG TABLET PO PRN (08:42)
[2018-01-08] MEDS: ATORVASTATIN CALCIUM 40MG TABLET NG SCH (21:40)
[2018-01-09] VITALS (19 sets, daily range): BP systolic 119–161; BP diastolic 51–87
[2018-01-09] MEDS: IPRATROPIUM/ALBUTEROL 0.5-3(2.5)MG/3ML NEB HHN SCH ×5 (00:24→20:17)
[2018-01-09] MEDS ORDERED: LIDOCAINE HCL/EPINEPHRINE 1%-EPI 1:100,000 20 ML VIAL ONE (08:48)
[2018-01-09] MEDS ORDERED: FENTANYL CITRATE/PF 50MCG/ML 2ML VIAL ONE (09:13)
[2018-01-09] MEDS ORDERED: MIDAZOLAM HCL 2 MG/2 ML VIAL ONE (09:14)
[2018-01-09] MEDS ORDERED: ROCURONIUM BROMIDE 10MG/ML VIAL 5ML IV ONE (09:14)
[2018-01-09] MEDS ORDERED: CEFAZOLIN SODIUM 1000MG/VIAL ONE (09:22)
[2018-01-09] MEDS ORDERED: TETRACAINE/BENZOCAINE/BUTAMBEN 20 GM SPRAY MM ONE (09:42)
[2018-01-09] MEDS ORDERED: SODIUM CHLORIDE 0.9% 1,000 ML IV SCH (10:44)
[2018-01-09] MEDS ORDERED: ONDANSETRON HCL 4MG/2ML VIAL IV PRN (10:45)
[2018-01-09] MEDS ORDERED: FENTANYL CITRATE/PF 50MCG/ML 2ML VIAL IV PRN (10:45)
[2018-01-09] MEDS ORDERED: ATROPINE SULFATE 0.4MG/ML VIAL IV PRN (10:45)
[2018-01-09] MEDS: SODIUM CHL 0.45% + KCL 20MEQ/L 1,000 ML IV SCH (11:00)
[2018-01-09] MEDS: PANTOPRAZOLE SODIUM 40 MG/VIAL IV SCH (11:04)
[2018-01-09] MEDS: HYDROMORPHONE HCL/PF 2MG/ML CPJ IV PRN ×2 (11:17→11:27)
[2018-01-09 12:37] LABS: BG BASE EXCESS 0.6 mmol/L (-2.0-2.0); BG CARBOXYHEMOGLOBIN 0.4 % (0.5-1.5); BG DEOXYHEMOGLOBIN 1.8 % (0.0-5.0); BG FRACTION INSPIRED OXYGEN 35; BG HCO3 ACT 25.1 mmol/L (22.0-26.0); BG METHEMOGLOBIN 0.1 % (0.0-1.5); BG OXYGEN SATURATION 98.2 % (92.0-98.5); BG OXYHEMOGLOBIN 97.7 % (94.0-97.0); BG PCO2 39.7 mmHg (35.0-45.0); BG PH 7.418 (7.350-7.450); BG PO2 111.5 mmHg (75.0-100.0); BG PRESSURE SUPPORT 10; BG SAMPLE SITE RIGHT BRACHIAL; BG TIDAL VOLUME(mL) 450 mL; BG TOTAL HEMOGLOBIN 9.7 g/dL (12.0-18.0); BG VENT MODE VENT - SIMV; BG VENT RATE 12 set
[2018-01-09] MEDS: MORPHINE SULFATE 4 MG/ML CPJ (NOT FOR IM USE) IV PRN ×2 (14:46→20:34)
[2018-01-09] MEDS: ATORVASTATIN CALCIUM 40MG TABLET NG SCH (21:40)
[2018-01-10] VITALS (12 sets, daily range): BP systolic 114–134; BP diastolic 53–70
[2018-01-10] MEDS: IPRATROPIUM/ALBUTEROL 0.5-3(2.5)MG/3ML NEB HHN SCH ×6 (00:24→20:45)
[2018-01-10] MEDS: SODIUM CHL 0.45% + KCL 20MEQ/L 1,000 ML IV SCH ×3 (06:02→22:19)
[2018-01-10 06:27] LABS: HEMATOCRIT 26.8 % (36.0-48.0); HEMOGLOBIN 8.7 g/dL (12.0-16.0); MEAN CORPUSCULAR HEMOGLOBIN 26.7 pg (28.0-32.0); MEAN CORPUSCULAR VOLUME 81.9 fL (81.0-99.0); PLATELET 620 x1000/uL (130-400); RED BLOOD CELL COUNT 3.27 mill/uL (4.2-5.4); RED CELL DISTRIBUTION WIDTH 16.8 % (11.6-14.6)
[2018-01-10 07:05] LABS: CHLORIDE 108 mEq/L (98-107)
[2018-01-10] MEDS: PANTOPRAZOLE SODIUM 40 MG/VIAL IV SCH (09:45)
[2018-01-10] MEDS: MORPHINE SULFATE 4 MG/ML CPJ (NOT FOR IM USE) IV PRN ×3 (09:46→20:41)
[2018-01-10 10:47] LABS: BG BASE EXCESS -0.4 mmol/L (-2.0-2.0); BG DEOXYHEMOGLOBIN 2.8 % (0.0-5.0); BG FRACTION INSPIRED OXYGEN 30; BG HCO3 ACT 23.8 mmol/L (22.0-26.0); BG METHEMOGLOBIN 0.1 % (0.0-1.5); BG OXYGEN SATURATION 97.2 % (92.0-98.5); BG OXYHEMOGLOBIN 97.1 % (94.0-97.0); BG PCO2 37.1 mmHg (35.0-45.0); BG PH 7.425 (7.350-7.450); BG PO2 96.9 mmHg (75.0-100.0); BG PRESSURE SUPPORT 10; BG SAMPLE SITE RIGHT BRACHIAL; BG TIDAL VOLUME(mL) 450 mL; BG TOTAL HEMOGLOBIN 9.7 g/dL (12.0-18.0); BG VENT MODE VENT - SIMV; BG VENT RATE 4 set
[2018-01-10 14:02] LABS: BG CARBOXYHEMOGLOBIN 0.4 % (0.5-1.5); BG DEOXYHEMOGLOBIN 2.1 % (0.0-5.0); BG FRACTION INSPIRED OXYGEN 30; BG HCO3 ACT 23.2 mmol/L (22.0-26.0); BG METHEMOGLOBIN 0.3 % (0.0-1.5); BG OXYGEN SATURATION 97.9 % (92.0-98.5); BG OXYHEMOGLOBIN 97.2 % (94.0-97.0); BG PCO2 36.4 mmHg (35.0-45.0); BG PH 7.423 (7.350-7.450); BG PO2 102.9 mmHg (75.0-100.0); BG PRESSURE SUPPORT 10; BG SAMPLE SITE RIGHT BRACHIAL; BG TOTAL HEMOGLOBIN 8.8 g/dL (12.0-18.0); BG VENT MODE VENT - CPAP
[2018-01-10 18:18] LABS: BG BASE EXCESS -1.2 mmol/L (-2.0-2.0); BG CARBOXYHEMOGLOBIN 0.3 % (0.5-1.5); BG DEOXYHEMOGLOBIN 2.2 % (0.0-5.0); BG FRACTION INSPIRED OXYGEN 35; BG HCO3 ACT 23.1 mmol/L (22.0-26.0); BG METHEMOGLOBIN 0.3 % (0.0-1.5); BG OXYGEN SATURATION 97.8 % (92.0-98.5); BG OXYHEMOGLOBIN 97.2 % (94.0-97.0); BG PH 7.414 (7.350-7.450); BG PO2 111.9 mmHg (75.0-100.0); BG SAMPLE SITE LEFT RADIAL; BG TOTAL HEMOGLOBIN 9.2 g/dL (12.0-18.0); BG VENT MODE MASK - TRACH
[2018-01-10] MEDS: ATORVASTATIN CALCIUM 40MG TABLET NG SCH (20:02)
[2018-01-11] VITALS (12 sets, daily range): BP systolic 114–142; BP diastolic 30–69
[2018-01-11] MEDS: IPRATROPIUM/ALBUTEROL 0.5-3(2.5)MG/3ML NEB HHN SCH ×6 (00:12→20:45)
[2018-01-11 07:39] LABS: CHLORIDE 105 mEq/L (98-107)
[2018-01-11 07:48] LABS: HEMATOCRIT. 26.1 % (36.0-48.0); HEMOGLOBIN. 8.5 g/dL (12.0-16.0); LYMPHOCYTES % 13.6 % (20.0-50.0); MEAN CORPUSCULAR HEMOGLOBIN 26.8 pg (28.0-32.0); MEAN CORPUSCULAR VOLUME 82.6 fL (81.0-99.0); MEAN PLATELET VOLUME 7.4 fl (7.4-10.4); NEUTROPHILS % 77.4 % (40.0-76.0); PLATELET 628 x1000/uL (130-400); RED BLOOD CELL COUNT 3.16 mill/uL (4.2-5.4); RED CELL DISTRIBUTION WIDTH 17.4 % (11.6-14.6)
[2018-01-11 07:51] LABS: PHOSPHORUS 3.1 mg/dL (2.5-4.9)
[2018-01-11] MEDS: PANTOPRAZOLE SODIUM 40 MG/VIAL IV SCH (09:01)
[2018-01-11] MEDS: SODIUM CHL 0.45% + KCL 20MEQ/L 1,000 ML IV SCH (09:02)
[2018-01-11] MEDS: MORPHINE SULFATE 4 MG/ML CPJ (NOT FOR IM USE) IV PRN ×3 (10:31→22:37)
[2018-01-11 11:16] LABS: BG BASE EXCESS 0.1 mmol/L (-2.0-2.0); BG CARBOXYHEMOGLOBIN 0.3 % (0.5-1.5); BG DEOXYHEMOGLOBIN 3.2 % (0.0-5.0); BG FRACTION INSPIRED OXYGEN 35; BG HCO3 ACT 25.7 mmol/L (22.0-26.0); BG METHEMOGLOBIN 0.2 % (0.0-1.5); BG OXYGEN SATURATION 96.8 % (92.0-98.5); BG OXYHEMOGLOBIN 96.3 % (94.0-97.0); BG PCO2 46.3 mmHg (35.0-45.0); BG PH 7.363 (7.350-7.450); BG SAMPLE SITE RIGHT RADIAL; BG TOTAL HEMOGLOBIN 9.6 g/dL (12.0-18.0); BG VENT MODE MASK - TRACH
[2018-01-11] MEDS: DEXT 5%/0.45% NACL KCL 20MEQ/L 1,000 ML IV SCH (12:02)
[2018-01-11] MEDS: ACETAMINOPHEN 325MG TABLET PO PRN (17:28)
[2018-01-11] MEDS: ATORVASTATIN CALCIUM 40MG TABLET NG SCH (20:39)
[2018-01-12] VITALS (13 sets, daily range): BP systolic 109–145; BP diastolic 51–79
[2018-01-12] MEDS: IPRATROPIUM/ALBUTEROL 0.5-3(2.5)MG/3ML NEB HHN SCH ×6 (00:26→21:25)
[2018-01-12] MEDS: DEXT 5%/0.45% NACL KCL 20MEQ/L 1,000 ML IV SCH ×2 (01:49→16:05)
[2018-01-12] MEDS: ACETAMINOPHEN 325MG TABLET PO PRN ×2 (05:52→21:09)
[2018-01-12] MEDS: PANTOPRAZOLE SODIUM 40 MG/VIAL IV SCH (09:22)
[2018-01-12] MEDS: MORPHINE SULFATE 4 MG/ML CPJ (NOT FOR IM USE) IV PRN ×2 (12:50→16:20)
[2018-01-12] MEDS: ATORVASTATIN CALCIUM 40MG TABLET NG SCH (21:09)
[2018-01-13] VITALS (12 sets, daily range): BP systolic 112–145; BP diastolic 60–82
[2018-01-13] MEDS: IPRATROPIUM/ALBUTEROL 0.5-3(2.5)MG/3ML NEB HHN SCH ×6 (00:33→20:57)
[2018-01-13] MEDS: DEXT 5%/0.45% NACL KCL 20MEQ/L 1,000 ML IV SCH ×2 (02:26→16:35)
[2018-01-13] MEDS: PANTOPRAZOLE SODIUM 40 MG/VIAL IV SCH (09:07)
[2018-01-13] MEDS: MORPHINE SULFATE 4 MG/ML CPJ (NOT FOR IM USE) IV PRN (20:21)
[2018-01-13] MEDS: ACETAMINOPHEN 325MG TABLET PO PRN (21:38)
[2018-01-13] MEDS: ATORVASTATIN CALCIUM 40MG TABLET NG SCH (21:38)
[2018-01-14] VITALS (12 sets, daily range): BP systolic 118–147; BP diastolic 56–82
[2018-01-14] MEDS: IPRATROPIUM/ALBUTEROL 0.5-3(2.5)MG/3ML NEB HHN SCH ×7 (00:37→23:54)
[2018-01-14 05:41] LABS: BASOPHILS % 0.7 % (0.0-2.0); EOSINOPHILS % 1.3 % (0.0-5.0); HEMATOCRIT. 27.2 % (36.0-48.0); HEMOGLOBIN. 8.9 g/dL (12.0-16.0); LYMPHOCYTES % 16.4 % (20.0-50.0); MEAN CORPUSCULAR HEMOGLOBIN 26.6 pg (28.0-32.0); MEAN CORPUSCULAR VOLUME 81.7 fL (81.0-99.0); MEAN PLATELET VOLUME 6.7 fl (7.4-10.4); MONOCYTES % 6.7 % (2.0-8.0); NEUTROPHILS % 74.9 % (40.0-76.0); PLATELET 544 x1000/uL (130-400); RED BLOOD CELL COUNT 3.33 mill/uL (4.2-5.4); RED CELL DISTRIBUTION WIDTH 18.1 % (11.6-14.6)
[2018-01-14 06:29] LABS: CHLORIDE 108 mEq/L (98-107)
[2018-01-14] MEDS: DEXT 5%/0.45% NACL KCL 20MEQ/L 1,000 ML IV SCH ×2 (06:42→18:05)
[2018-01-14] MEDS: PANTOPRAZOLE SODIUM 40 MG/VIAL IV SCH (09:16)
[2018-01-14] MEDS: ACETAMINOPHEN 325MG TABLET PO PRN (12:33)
[2018-01-14] MEDS: ATORVASTATIN CALCIUM 40MG TABLET NG SCH (21:35)
[2018-01-15] VITALS (13 sets, daily range): BP systolic 118–165; BP diastolic 51–94
[2018-01-15] MEDS: IPRATROPIUM/ALBUTEROL 0.5-3(2.5)MG/3ML NEB HHN SCH ×5 (03:46→20:25)
[2018-01-15] MEDS: ACETAMINOPHEN 325MG TABLET PO PRN ×2 (05:40→12:43)
[2018-01-15 06:56] LABS: BASOPHILS % 1.1 % (0.0-2.0); EOSINOPHILS % 1.6 % (0.0-5.0); HEMATOCRIT. 27.6 % (36.0-48.0); HEMOGLOBIN. 9.1 g/dL (12.0-16.0); LYMPHOCYTES % 13.9 % (20.0-50.0); MEAN CORPUSCULAR HEMOGLOBIN 26.9 pg (28.0-32.0); MEAN CORPUSCULAR VOLUME 81.4 fL (81.0-99.0); MONOCYTES % 5.4 % (2.0-8.0); PLATELET 527 x1000/uL (130-400); RED BLOOD CELL COUNT 3.39 mill/uL (4.2-5.4); RED CELL DISTRIBUTION WIDTH 17.7 % (11.6-14.6)
[2018-01-15] MEDS: PANTOPRAZOLE SODIUM 40 MG/VIAL IV SCH (08:37)
[2018-01-15] MEDS: DEXT 5%/0.45% NACL KCL 20MEQ/L 1,000 ML IV SCH ×2 (08:37→21:54)
[2018-01-15] MEDS: LOSARTAN POTASSIUM 25 MG TABLET PO SCH (17:48)
[2018-01-15] MEDS: BLOOD SUGAR DIAGNOSTIC STRIP TEST SCH (18:52)
[2018-01-15] MEDS: ATORVASTATIN CALCIUM 40MG TABLET NG SCH (21:13)
[2018-01-15] MEDS: NEOMY SULF/BACITRAC ZN/POLY OINT 28GM TOP SCH (21:13)
[2018-01-15] MEDS ORDERED: BLOOD SUGAR DIAGNOSTIC STRIP TEST SCH (22:00)
[2018-01-16] VITALS (7 sets, daily range): BP systolic 116–145; BP diastolic 60–78
[2018-01-16] MEDS: IPRATROPIUM/ALBUTEROL 0.5-3(2.5)MG/3ML NEB HHN SCH ×6 (00:48→20:17)
[2018-01-16] MEDS: BLOOD SUGAR DIAGNOSTIC STRIP TEST SCH ×2 (08:20→17:30)
[2018-01-16] MEDS: PANTOPRAZOLE SODIUM 40 MG/VIAL IV SCH (08:47)
[2018-01-16] MEDS: LOSARTAN POTASSIUM 25 MG TABLET PO SCH (08:47)
[2018-01-16] MEDS: NEOMY SULF/BACITRAC ZN/POLY OINT 28GM TOP SCH ×2 (08:48→20:59)
[2018-01-16] MEDS: HYDROCODONE/ACETAMINOPHEN 5/325MG TABLET PO PRN ×3 (09:41→21:03)
[2018-01-16] MEDS: DEXT 5%/0.45% NACL KCL 20MEQ/L 1,000 ML IV SCH (10:57)
[2018-01-16] MEDS: ACETAMINOPHEN 325MG TABLET PO PRN (12:03)
[2018-01-16] MEDS ORDERED: BLOOD SUGAR DIAGNOSTIC STRIP TEST SCH (18:30)
[2018-01-16] MEDS: ATORVASTATIN CALCIUM 40MG TABLET NG SCH (20:59)
[2018-01-17] VITALS (8 sets, daily range): BP systolic 107–130; BP diastolic 57–69
[2018-01-17] MEDS: DEXT 5%/0.45% NACL KCL 20MEQ/L 1,000 ML IV SCH (00:20)
[2018-01-17] MEDS: IPRATROPIUM/ALBUTEROL 0.5-3(2.5)MG/3ML NEB HHN SCH ×6 (00:41→20:10)
[2018-01-17] MEDS: BLOOD SUGAR DIAGNOSTIC STRIP TEST SCH ×2 (07:28→17:41)
[2018-01-17] MEDS: NEOMY SULF/BACITRAC ZN/POLY OINT 28GM TOP SCH (08:20)
[2018-01-17] MEDS: LOSARTAN POTASSIUM 25 MG TABLET PO SCH (08:20)
[2018-01-17] MEDS: PANTOPRAZOLE SODIUM 40 MG/VIAL IV SCH (08:20)
[2018-01-17] MEDS: HYDROCODONE/ACETAMINOPHEN 5/325MG TABLET PO PRN ×2 (09:22→17:43)
== END 2018-01-17 21:35 | DRG 3 ==
LOC: ER 20:31 → MICUSO 12-28 01:02 → EDBEDREQ 12-28 01:05 → CANRESERV 12-28 11:51 → ENRESERV 12-28 11:51 → 5EST 01-07 15:15
PROVIDERS: ADMIT Anesthesiology Critical Care Medicine; ATTEND Anesthesiology Critical Care Medicine
PROC: 0BH17EZ Insertion of Endotracheal Airway into Trachea, Via Natural or Artificial Opening (ICD-10-PCS; 2017-12-28)
PROC: 5A1945Z Respiratory Ventilation, 24-96 Consecutive Hours (ICD-10-PCS; 2017-12-28)
PROC: 4A00X4Z Measurement of Central Nervous Electrical Activity, External Approach (ICD-10-PCS; 2017-12-31)
PROC: 5A1955Z Respiratory Ventilation, Greater than 96 Consecutive Hours (ICD-10-PCS; principal; 2018-01-01)
PROC: 0BH17EZ Insertion of Endotracheal Airway into Trachea, Via Natural or Artificial Opening (ICD-10-PCS; 2018-01-01)
PROC: 05H933Z Insertion of Infusion Device into Right Brachial Vein, Percutaneous Approach (ICD-10-PCS; 2018-01-03)
PROC: B54MZZA Ultrasonography of Right Upper Extremity Veins, Guidance (ICD-10-PCS; 2018-01-03)
PROC: 0B110F4 Bypass Trachea to Cutaneous with Tracheostomy Device, Open Approach (ICD-10-PCS; 2018-01-09)
PROC: 0C9S8ZZ Drainage of Larynx, Via Natural or Artificial Opening Endoscopic (ICD-10-PCS; 2018-01-09)
PROC: 0CBS8ZX Excision of Larynx, Via Natural or Artificial Opening Endoscopic, Diagnostic (ICD-10-PCS; 2018-01-09)
DX: J96.01 Acute respiratory failure with hypoxia (principal); I21.4 Non-ST elevation (NSTEMI) myocardial infarction; G92 Toxic encephalopathy; J18.9 Pneumonia, unspecified organism; J98.11 Atelectasis; N39.0 Urinary tract infection, site not specified; J44.1 Chronic obstructive pulmonary disease with (acute) exacerbation; R47.01 Aphasia; I69.354 Hemiplegia and hemiparesis following cerebral infarction affecting left non-dominant side; Z99.11 Dependence on respirator [ventilator] status; E44.0 Moderate protein-calorie malnutrition; M47.817 Spondylosis without myelopathy or radiculopathy, lumbosacral region; I95.9 Hypotension, unspecified; M54.9 Dorsalgia, unspecified; D50.9 Iron deficiency anemia, unspecified; E04.9 Nontoxic goiter, unspecified; E11.51 Type 2 diabetes mellitus with diabetic peripheral angiopathy without gangrene; E66.9 Obesity, unspecified; E78.5 Hyperlipidemia, unspecified; E83.39 Other disorders of phosphorus metabolism; E83.51 Hypocalcemia; E87.6 Hypokalemia; F17.210 Nicotine dependence, cigarettes, uncomplicated; F32.9 Major depressive disorder, single episode, unspecified; F41.9 Anxiety disorder, unspecified; G43.909 Migraine, unspecified, not intractable, without status migrainosus; G89.29 Other chronic pain; H91.90 Unspecified hearing loss, unspecified ear; I11.9 Hypertensive heart disease without heart failure; I45.10 Unspecified right bundle-branch block; J38.7 Other diseases of larynx; J96.02 Acute respiratory failure with hypercapnia; K21.9 Gastro-esophageal reflux disease without esophagitis; M06.869 Other specified rheumatoid arthritis, unspecified knee; Z96.651 Presence of right artificial knee joint; M06.842 Other specified rheumatoid arthritis, left hand; M06.841 Other specified rheumatoid arthritis, right hand; M06.872 Other specified rheumatoid arthritis, left ankle and foot; E05.90 Thyrotoxicosis, unspecified without thyrotoxic crisis or storm; G35 Multiple sclerosis; J32.9 Chronic sinusitis, unspecified; E11.65 Type 2 diabetes mellitus with hyperglycemia; I25.118 Atherosclerotic heart disease of native coronary artery with other forms of angina pectoris; M06.871 Other specified rheumatoid arthritis, right ankle and foot; R13.10 Dysphagia, unspecified; Z78.1 Physical restraint status; I69.30 Unspecified sequelae of cerebral infarction; Z68.23 Body mass index [BMI] 23.0-23.9, adult; Z79.899 Other long term (current) drug therapy; Z87.11 Personal history of peptic ulcer disease; Z99.3 Dependence on wheelchair; Z90.710 Acquired absence of both cervix and uterus; Z88.2 Allergy status to sulfonamides; Z79.2 Long term (current) use of antibiotics
CPT/HCPCS: 31500; 36415; 36569; 36600; 70450; 71045; 76937; 80048; 80053; 80061; 80305; 81003; 82140; 82375; 82550; 82553; 82805; 82962; 83036; 83540; 83550; 83605; 83721; 83735; 83880; 84100; 84132; 84134; 84439; 84443; 84478; 84481; 84484; 85014; 85018; 85025; 85027; 85610; 85651; 86705; 86709; 86803; 87040; 87070; 87077; 87086; 87186; 87340; 88104; 88108; 88312; 92610; 93005; 93306; 93970; 94002; 94003; 94640; 95816; 96374; 96375; 97162; 97166; 97530; 99291; A6261; C1725; C9113; G0482; J0330; J0610; J0690; J1170; J1650; J2060; J2250; J2270; J2543; J2704; J3010; J3480; J3490; J7050; J7060; J7620; A4315

== ENCOUNTER 2018-03-04 11:18 | Inpatient (IN) | payer MEDICARE, MEDICAID ==
[~2018-03-04] VITALS: Ht 160 cm; Wt 55.8 kg
[2018-03-04] MEDS ORDERED: ZOLP5TAB8 PO (11:32)
[2018-03-04] MEDS ORDERED: PANT40TA4 PO (11:43)
[2018-03-04] MEDS ORDERED: DOCU100T PO (11:43)
[2018-03-04] MEDS ORDERED: ATOR40TA70 PO (11:43)
[2018-03-04] MEDS ORDERED: GUAI600T44 PO (11:43)
[2018-03-04] MEDS ORDERED: MOM MT (11:43)
[2018-03-04] MEDS ORDERED: IPRA3AMP9 HHN (11:43)
[2018-03-04] MEDS ORDERED: LACT-252 PO (11:43)
[2018-03-04] MEDS ORDERED: ACET-2853 PO (11:43)
[2018-03-04] MEDS ORDERED: LOSA25TA12 PO (11:43)
[2018-03-04] MEDS ORDERED: LIDOCAINE HCL/EPINEPHRINE 1%-EPI 1:100,000 20 ML VIAL ONE (13:20)
[2018-03-04] MEDS ORDERED: EPINEPHRINE 1:1000 1 MG/ML AMP ONE (13:24)
[2018-03-04] MEDS ORDERED: FENTANYL CITRATE/PF 50MCG/ML 2ML VIAL ONE (13:32)
[2018-03-04] MEDS ORDERED: PROPOFOL 200MG/20ML VIAL IV ONE (13:32)
[2018-03-04] MEDS ORDERED: SUCCINYLCHOLINE CHLORIDE 200MG/10ML IV ONE (15:06)
[2018-03-04] MEDS ORDERED: MIDAZOLAM HCL 2 MG/2 ML VIAL ONE (15:11)
[2018-03-04] MEDS ORDERED: DEXAMETHASONE 4MG/ML 1ML VIAL ONE (15:41)
[2018-03-04 18:05] LABS: BG BASE EXCESS 6.2 mmol/L (-2.0-2.0); BG DEOXYHEMOGLOBIN 1.9 % (0.0-5.0); BG FRACTION INSPIRED OXYGEN 60; BG HCO3 ACT 32.1 mmol/L (22.0-26.0); BG METHEMOGLOBIN 0.2 % (0.0-1.5); BG OXYGEN SATURATION 98.1 % (92.0-98.5); BG OXYHEMOGLOBIN 97.9 % (94.0-97.0); BG PCO2 53.3 mmHg (35.0-45.0); BG PH 7.398 (7.350-7.450); BG PO2 111.5 mmHg (75.0-100.0); BG SAMPLE SITE RIGHT RADIAL; BG TOTAL HEMOGLOBIN 10.4 g/dL (12.0-18.0); BG VENT MODE MASK - TRACH
[2018-03-04 20:00] VITALS: BP 113/50
[2018-03-04 21:36] VITALS: BP 113/50
[2018-03-04] MEDS: KETOROLAC 15MG/ML VIAL IV PRN (22:02)
[2018-03-04 23:55] VITALS: BP 105/50
[2018-03-05] MEDS: IPRATROPIUM/ALBUTEROL 0.5-3(2.5)MG/3ML NEB HHN SCH ×6 (00:47→20:04)
[2018-03-05 04:00] VITALS: BP 114/56
[2018-03-05] MEDS: PANTOPRAZOLE 40MG DR TABLET PO SCH (06:02)
[2018-03-05 07:24] LABS: CHLORIDE 106 mEq/L (98-107)
[2018-03-05 07:33] LABS: HEMATOCRIT. 28.3 % (36.0-48.0); MEAN CORPUSCULAR VOLUME 81.6 fL (81.0-99.0); PLATELET 347 x1000/uL (130-400); RED BLOOD CELL COUNT 3.47 mill/uL (4.2-5.4); RED CELL DISTRIBUTION WIDTH 20.3 % (11.6-14.6)
[2018-03-05 08:00] VITALS: BP 113/46
[2018-03-05] MEDS: LOSARTAN POTASSIUM 50 MG TABLET PO SCH (08:32)
[2018-03-05 12:00] VITALS: BP 113/51
[2018-03-05] MEDS: KETOROLAC 15MG/ML VIAL IV PRN ×2 (14:28→23:16)
[2018-03-05 16:00] VITALS: BP 118/54
[2018-03-05 16:14] LABS: PLATELET ESTIMATE NORMAL
[2018-03-05 20:00] VITALS: BP 112/76
[2018-03-06] VITALS: BP 107/48
[2018-03-06] MEDS: IPRATROPIUM/ALBUTEROL 0.5-3(2.5)MG/3ML NEB HHN SCH ×6 (00:32→20:59)
[2018-03-06 04:08] VITALS: BP 110/50
[2018-03-06] MEDS: PANTOPRAZOLE 40MG DR TABLET PO SCH (06:27)
[2018-03-06 07:16] VITALS: BP 115/59
[2018-03-06] MEDS: LOSARTAN POTASSIUM 50 MG TABLET PO SCH (08:29)
[2018-03-06 10:58] VITALS: BP 111/50
[2018-03-06] MEDS: ACETAMINOPHEN 325MG TABLET PO PRN (12:21)
[2018-03-06 15:01] VITALS: BP 106/46
[2018-03-06 20:06] VITALS: BP 113/57
[2018-03-06] MEDS: KETOROLAC 15MG/ML VIAL IV PRN (20:17)
[2018-03-06] MEDS: CLOPIDOGREL 75MG TABLET PO SCH (20:17)
[2018-03-06] MEDS: MUPIROCIN 2% OINT 22GM NS SCH (20:17)
[2018-03-07] VITALS: BP 113/56
[2018-03-07] MEDS: IPRATROPIUM/ALBUTEROL 0.5-3(2.5)MG/3ML NEB HHN SCH ×7 (00:46→23:44)
[2018-03-07 04:00] VITALS: BP 132/94
[2018-03-07] MEDS: PANTOPRAZOLE 40MG DR TABLET PO SCH (06:50)
[2018-03-07 08:00] VITALS: BP 118/54
[2018-03-07] MEDS: LOSARTAN POTASSIUM 50 MG TABLET PO SCH (08:11)
[2018-03-07] MEDS: MUPIROCIN 2% OINT 22GM NS SCH ×2 (08:25→21:19)
[2018-03-07] MEDS: CLOPIDOGREL 75MG TABLET PO SCH (08:25)
[2018-03-07] MEDS: KETOROLAC 15MG/ML VIAL IV PRN ×2 (09:58→14:31)
[2018-03-07 12:00] VITALS: BP 112/61
[2018-03-07] MEDS: GUAIFENESIN-DM 200MG-20MG/10ML UDC PO PRN (14:31)
[2018-03-07 16:00] VITALS: BP 121/73
[2018-03-07 17:48] LABS: BG BASE EXCESS 6.3 mmol/L (-2.0-2.0); BG FRACTION INSPIRED OXYGEN 21; BG HCO3 ACT 29.9 mmol/L (22.0-26.0); BG METHEMOGLOBIN 0.2 % (0.0-1.5); BG OXYHEMOGLOBIN 94.8 % (94.0-97.0); BG PH 7.502 (7.350-7.450); BG PO2 75.4 mmHg (75.0-100.0); BG SAMPLE SITE RIGHT RADIAL; BG TOTAL HEMOGLOBIN 9.9 g/dL (12.0-18.0); BG VENT MODE ROOM AIR
[2018-03-07 19:26] VITALS: BP 116/60
[2018-03-08 00:35] VITALS: BP 127/70
[2018-03-08] MEDS: KETOROLAC 15MG/ML VIAL IV PRN ×3 (02:43→17:22)
[2018-03-08] MEDS: IPRATROPIUM/ALBUTEROL 0.5-3(2.5)MG/3ML NEB HHN SCH ×5 (04:19→20:25)
[2018-03-08] MEDS: PANTOPRAZOLE 40MG DR TABLET PO SCH (06:20)
[2018-03-08 07:58] VITALS: BP 124/64
[2018-03-08] MEDS: CLOPIDOGREL 75MG TABLET PO SCH (09:33)
[2018-03-08] MEDS: LOSARTAN POTASSIUM 50 MG TABLET PO SCH (09:33)
[2018-03-08] MEDS: MUPIROCIN 2% OINT 22GM NS SCH ×2 (09:33→20:51)
[2018-03-08 11:57] VITALS: BP 99/53
[2018-03-08 13:13] LABS: BASOPHILS % 0.7 % (0.0-2.0); HEMATOCRIT. 26.4 % (36.0-48.0); HEMOGLOBIN. 8.5 g/dL (12.0-16.0); MEAN CORPUSCULAR HEMOGLOBIN 25.9 pg (28.0-32.0); MEAN CORPUSCULAR VOLUME 80.9 fL (81.0-99.0); MEAN PLATELET VOLUME 7.4 fl (7.4-10.4); NEUTROPHILS % 66.3 % (40.0-76.0); PLATELET 287 x1000/uL (130-400); RED BLOOD CELL COUNT 3.26 mill/uL (4.2-5.4); RED CELL DISTRIBUTION WIDTH 20.7 % (11.6-14.6)
[2018-03-08 16:05] VITALS: BP 113/60
[2018-03-08 20:00] VITALS: BP 122/56
[2018-03-09] VITALS: BP 125/66
[2018-03-09] MEDS: IPRATROPIUM/ALBUTEROL 0.5-3(2.5)MG/3ML NEB HHN SCH ×6 (00:56→21:41)
[2018-03-09 04:09] VITALS: BP 145/75
[2018-03-09] MEDS: PANTOPRAZOLE 40MG DR TABLET PO SCH ×2 (05:39→08:43)
[2018-03-09] MEDS: ACETAMINOPHEN 325MG TABLET PO PRN (05:39)
[2018-03-09 07:54] LABS: BASOPHILS % 0.8 % (0.0-2.0); EOSINOPHILS % 2.9 % (0.0-5.0); HEMATOCRIT. 28.1 % (36.0-48.0); LYMPHOCYTES % 23.3 % (20.0-50.0); MEAN CORPUSCULAR HEMOGLOBIN 26.1 pg (28.0-32.0); MEAN CORPUSCULAR VOLUME 81.5 fL (81.0-99.0); MEAN PLATELET VOLUME 7.8 fl (7.4-10.4); PLATELET 299 x1000/uL (130-400); RED BLOOD CELL COUNT 3.45 mill/uL (4.2-5.4); RED CELL DISTRIBUTION WIDTH 21.2 % (11.6-14.6)
[2018-03-09 08:00] VITALS: BP 130/68
[2018-03-09 08:35] LABS: CHLORIDE 104 mEq/L (98-107)
[2018-03-09] MEDS: MUPIROCIN 2% OINT 22GM NS SCH ×2 (08:42→21:18)
[2018-03-09] MEDS: LOSARTAN POTASSIUM 50 MG TABLET PO SCH (08:43)
[2018-03-09] MEDS: CLOPIDOGREL 75MG TABLET PO SCH (08:43)
[2018-03-09 12:30] VITALS: BP 104/56
[2018-03-09 12:57] LABS: BG BASE EXCESS 7.2 mmol/L (-2.0-2.0); BG CARBOXYHEMOGLOBIN 0.1 % (0.5-1.5); BG DEOXYHEMOGLOBIN 4.8 % (0.0-5.0); BG FRACTION INSPIRED OXYGEN 21; BG HCO3 ACT 31.7 mmol/L (22.0-26.0); BG METHEMOGLOBIN 0.1 % (0.0-1.5); BG OXYGEN SATURATION 95.2 % (92.0-98.5); BG PCO2 45.2 mmHg (35.0-45.0); BG PH 7.464 (7.350-7.450); BG PO2 73.8 mmHg (75.0-100.0); BG SAMPLE SITE RIGHT RADIAL; BG VENT MODE MASK - TRACH
[2018-03-09] MEDS ORDERED: LIDOCAINE HCL/PF 1% 2ML VIAL ONE (14:46)
[2018-03-09 16:00] VITALS: BP 110/62
[2018-03-09] MEDS: KETOROLAC 15MG/ML VIAL IV PRN (18:59)
[2018-03-09 20:00] VITALS: BP 127/61
[2018-03-10] VITALS: BP 124/64
[2018-03-10] MEDS: IPRATROPIUM/ALBUTEROL 0.5-3(2.5)MG/3ML NEB HHN SCH ×5 (00:37→21:22)
[2018-03-10 04:00] VITALS: BP 126/65
[2018-03-10] MEDS: ACETAMINOPHEN 325MG TABLET PO PRN ×2 (04:49→20:43)
[2018-03-10 08:00] VITALS: BP 126/68
[2018-03-10] MEDS ORDERED: KETOROLAC 15MG/ML VIAL IV PRN (09:00)
[2018-03-10] MEDS: MUPIROCIN 2% OINT 22GM NS SCH ×2 (09:34→20:31)
[2018-03-10] MEDS: LOSARTAN POTASSIUM 50 MG TABLET PO SCH (09:34)
[2018-03-10] MEDS: CLOPIDOGREL 75MG TABLET PO SCH (09:34)
[2018-03-10] MEDS: PANTOPRAZOLE 40MG DR TABLET PO SCH (09:34)
[2018-03-10] MEDS: HYDROCODONE/ACETAMINOPHEN 10/325MG TABLET PO PRN (09:46)
[2018-03-10 12:00] VITALS: BP 108/60
[2018-03-10 16:00] VITALS: BP 100/37
[2018-03-10 20:15] VITALS: BP 102/51
[2018-03-11] VITALS (7 sets, daily range): BP systolic 90–133; BP diastolic 40–71
[2018-03-11] MEDS: IPRATROPIUM/ALBUTEROL 0.5-3(2.5)MG/3ML NEB HHN SCH ×7 (00:49→20:43)
[2018-03-11] MEDS: MUPIROCIN 2% OINT 22GM NS SCH ×2 (09:00→20:55)
[2018-03-11] MEDS: CLOPIDOGREL 75MG TABLET PO SCH (09:38)
[2018-03-11] MEDS: LOSARTAN POTASSIUM 50 MG TABLET PO SCH (09:39)
[2018-03-11] MEDS: PANTOPRAZOLE 40MG DR TABLET PO SCH (09:39)
[2018-03-11] MEDS: HYDROCODONE/ACETAMINOPHEN 10/325MG TABLET PO PRN ×2 (09:42→20:55)
[2018-03-11] MEDS: AMOXICILLIN/POTASSIUM CLAVULANATE 875/125MG TAB PO SCH (20:54)
[2018-03-11 22:49] LABS: BG BASE EXCESS 7.1 mmol/L (-2.0-2.0); BG CARBOXYHEMOGLOBIN 0.3 % (0.5-1.5); BG DEOXYHEMOGLOBIN 12.1 % (0.0-5.0); BG FRACTION INSPIRED OXYGEN 21; BG HCO3 ACT 31.8 mmol/L (22.0-26.0); BG METHEMOGLOBIN 0.4 % (0.0-1.5); BG OXYGEN SATURATION 87.8 % (92.0-98.5); BG OXYHEMOGLOBIN 87.2 % (94.0-97.0); BG PCO2 45.7 mmHg (35.0-45.0); BG PO2 54.7 mmHg (75.0-100.0); BG SAMPLE SITE LEFT BRACHIAL; BG TOTAL HEMOGLOBIN 10.1 g/dL (12.0-18.0); BG VENT MODE ROOM AIR
[2018-03-12 00:26] VITALS: BP 109/53
[2018-03-12] MEDS: IPRATROPIUM/ALBUTEROL 0.5-3(2.5)MG/3ML NEB HHN SCH ×7 (00:54→20:52)
[2018-03-12] MEDS: HYDROCODONE/ACETAMINOPHEN 10/325MG TABLET PO PRN (04:10)
[2018-03-12 04:20] VITALS: BP 110/62
[2018-03-12 07:57] VITALS: BP 93/46
[2018-03-12] MEDS: CLOPIDOGREL 75MG TABLET PO SCH (08:59)
[2018-03-12] MEDS: GUAIFENESIN-DM 200MG-20MG/10ML UDC PO PRN (08:59)
[2018-03-12] MEDS: LOSARTAN POTASSIUM 50 MG TABLET PO SCH (09:00)
[2018-03-12] MEDS: PANTOPRAZOLE 40MG DR TABLET PO SCH (09:00)
[2018-03-12] MEDS: AMOXICILLIN/POTASSIUM CLAVULANATE 875/125MG TAB PO SCH ×2 (09:00→21:24)
[2018-03-12 11:59] VITALS: BP 98/42
[2018-03-12 16:28] VITALS: BP 148/72
[2018-03-12 20:00] VITALS: BP 96/41
[2018-03-13] VITALS: BP 100/51
[2018-03-13] MEDS ORDERED: LORAZEPAM 2MG/ML CPJ IV PRN
[2018-03-13] MEDS: IPRATROPIUM/ALBUTEROL 0.5-3(2.5)MG/3ML NEB HHN SCH ×5 (01:10→12:09)
[2018-03-13] MEDS: HYDROCODONE/ACETAMINOPHEN 10/325MG TABLET PO PRN (03:48)
[2018-03-13 04:00] VITALS: BP 119/53
[2018-03-13] MEDS: PANTOPRAZOLE 40MG DR TABLET PO SCH (06:28)
[2018-03-13 08:00] VITALS: BP 105/32
[2018-03-13 08:20] VITALS: BP 106/48
[2018-03-13] MEDS: LOSARTAN POTASSIUM 50 MG TABLET PO SCH (09:00)
[2018-03-13] MEDS: AMOXICILLIN/POTASSIUM CLAVULANATE 875/125MG TAB PO SCH (09:21)
[2018-03-13] MEDS: CLOPIDOGREL 75MG TABLET PO SCH (09:22)
[2018-03-13] MEDS ORDERED: AMOX-424 MT (11:11)
[2018-03-13] MEDS ORDERED: CLOP75TA16 MT (11:12)
[2018-03-13] MEDS ORDERED: IPRA3AMP9 HHN (11:13)
[2018-03-13] MEDS ORDERED: TUSSL MT (11:13)
[2018-03-13 12:16] VITALS: BP 86/54
[2018-03-13 12:30] VITALS: BP 108/48
== END 2018-03-13 14:30 | disposition home health service (06) | DRG 146 ==
LOC: OR 11:18 → 6WST 11:20 → OBSVTOIN 11:20
PROVIDERS: ADMIT Anesthesiology Critical Care Medicine; ATTEND Anesthesiology Critical Care Medicine
PROC: 0B21XFZ Change Tracheostomy Device in Trachea, External Approach (ICD-10-PCS; 2018-03-04)
PROC: 0CBR8ZX Excision of Epiglottis, Via Natural or Artificial Opening Endoscopic, Diagnostic (ICD-10-PCS; 2018-03-04)
PROC: 0CBS8ZX Excision of Larynx, Via Natural or Artificial Opening Endoscopic, Diagnostic (ICD-10-PCS; principal; 2018-03-04 14:00)
DX: C32.9 Malignant neoplasm of larynx, unspecified (principal); J96.20 Acute and chronic respiratory failure, unspecified whether with hypoxia or hypercapnia; E44.0 Moderate protein-calorie malnutrition; J38.01 Paralysis of vocal cords and larynx, unilateral; J44.9 Chronic obstructive pulmonary disease, unspecified; K21.9 Gastro-esophageal reflux disease without esophagitis; I25.10 Atherosclerotic heart disease of native coronary artery without angina pectoris; I11.9 Hypertensive heart disease without heart failure; M06.9 Rheumatoid arthritis, unspecified; M19.90 Unspecified osteoarthritis, unspecified site; J39.8 Other specified diseases of upper respiratory tract; D50.9 Iron deficiency anemia, unspecified; B96.1 Klebsiella pneumoniae [K. pneumoniae] as the cause of diseases classified elsewhere; Z93.0 Tracheostomy status; Z87.01 Personal history of pneumonia (recurrent); Z86.73 Personal history of transient ischemic attack (TIA), and cerebral infarction without residual deficits; Z87.891 Personal history of nicotine dependence; Z88.2 Allergy status to sulfonamides; Z68.21 Body mass index [BMI] 21.0-21.9, adult
CPT/HCPCS: 36415; 36600; 71045; 80048; 82375; 82805; 85007; 85025; 85027; 85651; 87040; 87070; 87077; 87086; 87186; 88305; 92523; 93005; 94640; 97110; 97162; 97167; 97530; C1893; J0330; J1100; J1885; J2250; J2704; J3010; J3490; J7620

== ENCOUNTER 2018-06-09 11:39 | Inpatient (IN) | payer MEDICARE, MEDICAID ==
[~2018-06-09] VITALS: Ht 162.6 cm; Wt 80.7 kg
[2018-06-09] MEDS ORDERED: SODIUM CHLORIDE 0.9% 1,000 ML IV ONE (12:08)
[2018-06-09 12:56] LABS: HEMATOCRIT. 35.4 % (36.0-48.0); HEMOGLOBIN. 11.3 g/dL (12.0-16.0); MEAN CORPUSCULAR HEMOGLOBIN 25.4 pg (28.0-32.0); MEAN CORPUSCULAR VOLUME 79.1 fL (81.0-99.0); MEAN PLATELET VOLUME 7.1 fl (7.4-10.4); PLATELET 405 x1000/uL (130-400); RED BLOOD CELL COUNT 4.47 mill/uL (4.2-5.4)
[2018-06-09 12:59] LABS: CHLORIDE 102 mEq/L (98-107)
[2018-06-09 13:02] LABS: INR 1.1; PROTHROMBIN TIME 10.6 sec (9.1-11.1)
[2018-06-09 13:37] LABS: PLATELET ESTIMATE SLIGHTLY INCREASED
[2018-06-09 13:44] LABS: CLARITY URINE TURBID (CLEAR); COLOR URINE YELLOW (YELLOW); KETONES URINE NEGATIVE (NEGATIVE); LEUKOCYTE ESTERASE URINE NEGATIVE (NEGATIVE); NITRITE URINE NEGATIVE (NEGATIVE); OCCULT BLOOD URINE NEGATIVE (NEGATIVE); PH URINE 6.5 (4.5-8.0); PROTEIN URINE NEGATIVE (NEGATIVE)
[2018-06-09] MEDS ORDERED: SODIUM CHLORIDE 0.9% 1000ML BAG (SEPSIS BOLUS) IV ONE (13:45)
[2018-06-09] MEDS ORDERED: VANCOMYCIN 1 G PREMIX 200 ML IV ONE (14:15)
[2018-06-09] MEDS ORDERED: PIPERACILLIN/TAZ 3.375G PREMIX 50 ML IV ONE (14:15)
[2018-06-09] MEDS ORDERED: SODIUM CHLORIDE 10% FOR INH 15ML VIAL NEB INH SCH (15:15)
[2018-06-09] MEDS: ACETAMINOPHEN 325MG TABLET PO ONE (16:15)
[2018-06-09 17:50] VITALS: BP 108/62
[2018-06-09 17:58] VITALS: BP 108/62
[2018-06-09] MEDS ORDERED: IPRATROPIUM/ALBUTEROL 0.5-3(2.5)MG/3ML NEB HHN PRN (19:45)
[2018-06-09] MEDS ORDERED: GUAIFENESIN 200MG/10ML SUGAR FREE UDC PO PRN (19:45)
[2018-06-09] MEDS ORDERED: POTASSIUM CHLORIDE 20MEQ TABLET SR PO NR (19:45)
[2018-06-09 20:00] VITALS: BP 116/59
[2018-06-09] MEDS ORDERED: ACETAMINOPHEN WITH CODEINE 300/30MG TABLET PO PRN (20:00)
[2018-06-09] MEDS ORDERED: ZOSYN PER PHARMACY XX SCH (20:15)
[2018-06-09] MEDS: VANCOMYCIN 1 G PREMIX 200 ML IV SCH (23:46)
[2018-06-09] MEDS: PIPERACILLIN/TAZ 3.375G PREMIX 50 ML IV SCH (23:46)
[2018-06-10 00:05] VITALS: BP 119/60
[2018-06-10] MEDS: IPRATROPIUM/ALBUTEROL 0.5-3(2.5)MG/3ML NEB HHN SCH ×4 (01:03→21:05)
[2018-06-10] MEDS: PIPERACILLIN/TAZ 3.375G PREMIX 50 ML IV SCH ×4 (05:17→23:49)
[2018-06-10] MEDS: POTASSIUM CHLORIDE 20MEQ TABLET SR PO NR ×2 (05:36→06:50)
[2018-06-10 05:37] LABS: HEMATOCRIT. 31.2 % (36.0-48.0); MEAN CORPUSCULAR HEMOGLOBIN 25.3 pg (28.0-32.0); MEAN PLATELET VOLUME 7.2 fl (7.4-10.4); PLATELET 411 x1000/uL (130-400); RED BLOOD CELL COUNT 3.95 mill/uL (4.2-5.4); RED CELL DISTRIBUTION WIDTH 16.7 % (11.6-14.6)
[2018-06-10 05:40] LABS: CHLORIDE 104 mEq/L (98-107)
[2018-06-10] MEDS ORDERED: DEXT 5%/0.45% NACL KCL 30MEQ/L 1,000 ML IV SCH (06:15)
[2018-06-10 06:25] VITALS: BP 120/65
[2018-06-10 08:00] VITALS: BP 116/59
[2018-06-10] MEDS: PANTOPRAZOLE 40MG DR TABLET PO SCH (09:00)
[2018-06-10] MEDS: CLOPIDOGREL 75MG TABLET PO SCH (09:00)
[2018-06-10] MEDS ORDERED: POTASSIUM CHLORIDE INJ 30 MEQ in DEXT 5% WATER 250 ML IV SCH (09:00)
[2018-06-10] MEDS: LOSARTAN POTASSIUM 50 MG TABLET PO SCH (09:00)
[2018-06-10] MEDS: FERROUS SULFATE 325MG TABLET PO SCH ×3 (09:01→18:37)
[2018-06-10] MEDS: ENOXAPARIN 40MG/0.4ML SYR SUBCUT SCH (09:01)
[2018-06-10] MEDS ORDERED: INFLUENZA VIRUS VACCINE(AFLURIA) 0.5ML SYR IM ONE (10:00)
[2018-06-10 10:54] LABS: HEMATOCRIT. 31.2 % (36.0-48.0); HEMOGLOBIN. 9.9 g/dL (12.0-16.0); MEAN CORPUSCULAR HEMOGLOBIN 24.9 pg (28.0-32.0); MEAN CORPUSCULAR VOLUME 78.4 fL (81.0-99.0); MEAN PLATELET VOLUME 7.1 fl (7.4-10.4); PLATELET 386 x1000/uL (130-400); RED BLOOD CELL COUNT 3.98 mill/uL (4.2-5.4); RED CELL DISTRIBUTION WIDTH 16.5 % (11.6-14.6)
[2018-06-10 12:00] VITALS: BP 124/66
[2018-06-10 14:01] LABS: PLATELET ESTIMATE NORMAL
[2018-06-10 14:15] LABS: PLATELET ESTIMATE SLIGHTLY INCREASED
[2018-06-10] MEDS: ACETAMINOPHEN 325MG TABLET PO PRN (16:14)
[2018-06-10] MEDS: VANCOMYCIN 1 G PREMIX 200 ML IV SCH (16:14)
[2018-06-10 20:00] VITALS: BP 129/67
[2018-06-10] MEDS ORDERED: IOHEXOL-300 100 ML BOTTLE ONE (21:34)
[2018-06-11] VITALS: BP 113/62
[2018-06-11] MEDS: IPRATROPIUM/ALBUTEROL 0.5-3(2.5)MG/3ML NEB HHN SCH ×4 (01:26→20:52)
[2018-06-11 04:00] VITALS: BP 121/58
[2018-06-11] MEDS: PIPERACILLIN/TAZ 3.375G PREMIX 50 ML IV SCH ×3 (06:00→18:47)
[2018-06-11 06:35] LABS: CHLORIDE 109 mEq/L (98-107)
[2018-06-11 06:41] LABS: TOTAL IRON BINDING CAPACITY 245 ug/dL (250-450)
[2018-06-11 08:00] VITALS: BP 124/65
[2018-06-11] MEDS: LOSARTAN POTASSIUM 50 MG TABLET PO SCH (08:36)
[2018-06-11] MEDS: FERROUS SULFATE 325MG TABLET PO SCH ×3 (08:36→18:47)
[2018-06-11] MEDS: ENOXAPARIN 40MG/0.4ML SYR SUBCUT SCH (08:36)
[2018-06-11] MEDS: CLOPIDOGREL 75MG TABLET PO SCH (08:36)
[2018-06-11] MEDS: PANTOPRAZOLE 40MG DR TABLET PO SCH (08:36)
[2018-06-11] MEDS: VANCOMYCIN 1 G PREMIX 200 ML IV SCH (11:16)
[2018-06-11 12:00] VITALS: BP 116/55
[2018-06-11] MEDS ORDERED: POTASSIUM CHLORIDE INJ 40 MEQ in DEXT 5% WATER 250 ML IV NR (12:00)
[2018-06-11] MEDS ORDERED: PAMIDRONATE DISODIUM 60 MG in SODIUM CHLORIDE 0.9% 500 ML IV NR (15:00)
[2018-06-11 16:00] VITALS: BP 126/59
[2018-06-11 20:10] VITALS: BP 132/80
[2018-06-12 00:04] VITALS: BP 142/85
[2018-06-12] MEDS: PIPERACILLIN/TAZ 3.375G PREMIX 50 ML IV SCH ×5 (00:22→23:54)
[2018-06-12] MEDS: IPRATROPIUM/ALBUTEROL 0.5-3(2.5)MG/3ML NEB HHN SCH ×4 (02:00→21:25)
[2018-06-12 04:00] VITALS: BP 146/76
[2018-06-12] MEDS: VANCOMYCIN 1 G PREMIX 200 ML IV SCH (04:50)
[2018-06-12 08:00] VITALS: BP 145/79
[2018-06-12] MEDS: LOSARTAN POTASSIUM 50 MG TABLET PO SCH (08:13)
[2018-06-12] MEDS: PANTOPRAZOLE 40MG DR TABLET PO SCH (08:13)
[2018-06-12] MEDS: CLOPIDOGREL 75MG TABLET PO SCH (08:14)
[2018-06-12] MEDS: FERROUS SULFATE 325MG TABLET PO SCH ×3 (08:14→18:10)
[2018-06-12] MEDS: ENOXAPARIN 40MG/0.4ML SYR SUBCUT SCH (08:14)
[2018-06-12 09:58] LABS: HEMATOCRIT. 34.5 % (36.0-48.0); HEMOGLOBIN. 10.7 g/dL (12.0-16.0); MEAN CORPUSCULAR HEMOGLOBIN 24.3 pg (28.0-32.0); MEAN CORPUSCULAR VOLUME 78.7 fL (81.0-99.0); MEAN PLATELET VOLUME 7.2 fl (7.4-10.4); PLATELET 419 x1000/uL (130-400); RED BLOOD CELL COUNT 4.39 mill/uL (4.2-5.4); RED CELL DISTRIBUTION WIDTH 16.9 % (11.6-14.6)
[2018-06-12 11:05] LABS: PLATELET ESTIMATE INCREASED
[2018-06-12 11:50] LABS: CHLORIDE 110 mEq/L (98-107)
[2018-06-12 12:00] VITALS: BP_SYST 140; BP_DIAS 78; BP_DIAS 80
[2018-06-12] MEDS ORDERED: BARIUM SULFATE 176 GM SUSP.RECON ONE (13:26)
[2018-06-12 16:00] VITALS: BP 142/78
[2018-06-12] MEDS ORDERED: POTASSIUM CHLORIDE INJ 40 MEQ in DEXT 5% WATER 250 ML IV NR (16:30)
[2018-06-12] MEDS ORDERED: VANCOMYCIN 750 MG PREMIX 150 ML IV SCH (18:00)
[2018-06-12 20:00] VITALS: BP 127/63
[2018-06-12] MEDS: PANTOPRAZOLE SODIUM 40 MG/VIAL IV SCH (20:55)
[2018-06-13 00:09] VITALS: BP 122/65
[2018-06-13] MEDS: IPRATROPIUM/ALBUTEROL 0.5-3(2.5)MG/3ML NEB HHN SCH ×4 (01:50→20:18)
[2018-06-13 04:00] VITALS: BP 115/58
[2018-06-13] MEDS: PIPERACILLIN/TAZ 3.375G PREMIX 50 ML IV SCH ×2 (05:53→12:43)
[2018-06-13 08:00] VITALS: BP 113/45
[2018-06-13] MEDS: FERROUS SULFATE 325MG TABLET PO SCH (08:10)
[2018-06-13] MEDS: LOSARTAN POTASSIUM 50 MG TABLET PO SCH (08:18)
[2018-06-13] MEDS: PANTOPRAZOLE SODIUM 40 MG/VIAL IV SCH ×2 (08:18→20:56)
[2018-06-13] MEDS ORDERED: FAMOTIDINE 20MG TABLET PO SCH (09:00)
[2018-06-13 09:40] LABS: HEMATOCRIT. 31.2 % (36.0-48.0); HEMOGLOBIN. 10.1 g/dL (12.0-16.0); MEAN CORPUSCULAR HEMOGLOBIN 25.3 pg (28.0-32.0); MEAN CORPUSCULAR VOLUME 78.1 fL (81.0-99.0); MEAN PLATELET VOLUME 6.8 fl (7.4-10.4); PLATELET 396 x1000/uL (130-400); RED BLOOD CELL COUNT 3.99 mill/uL (4.2-5.4); RED CELL DISTRIBUTION WIDTH 16.8 % (11.6-14.6)
[2018-06-13 09:57] LABS: INR 1.1; PARTIAL THROMBOPLASTIN TIME 30.3 sec (23.4-31.0); PROTHROMBIN TIME 10.9 sec (9.1-11.1)
[2018-06-13 10:01] LABS: CHLORIDE 115 mEq/L (98-107)
[2018-06-13 12:00] VITALS: BP 125/93
[2018-06-13 13:10] LABS: PLATELET ESTIMATE NORMAL
[2018-06-13] MEDS ORDERED: POTASSIUM CHLORIDE INJ 40 MEQ in DEXT 5% WATER 250 ML IV NR (14:00)
[2018-06-13] MEDS ORDERED: MIDAZOLAM HCL 5 MG/5 ML VIAL IV PRN (14:41)
[2018-06-13] MEDS ORDERED: FENTANYL CITRATE/PF 50MCG/ML 2ML VIAL ONE (14:42)
[2018-06-13] MEDS ORDERED: SIMETHICONE 40 MG/0.6 ML 30ML ONE (14:42)
[2018-06-13] MEDS ORDERED: MIDAZOLAM HCL 5 MG/5 ML VIAL ONE (14:42)
[2018-06-13] MEDS ORDERED: FENTANYL CITRATE/PF 50MCG/ML 2ML VIAL IV PRN (14:42)
[2018-06-13 16:00] VITALS: BP 142/76
[2018-06-14] VITALS: BP 125/63
[2018-06-14] MEDS: IPRATROPIUM/ALBUTEROL 0.5-3(2.5)MG/3ML NEB HHN SCH ×4 (01:45→20:22)
[2018-06-14 04:00] VITALS: BP 124/71
[2018-06-14] MEDS: PIPERACILLIN/TAZ 3.375G PREMIX 50 ML IV SCH ×4 (06:00→17:44)
[2018-06-14] MEDS: DEXT 5% WATER + KCL 20MEQ/L 1,000 ML IV SCH ×2 (07:26→07:27)
[2018-06-14 08:00] VITALS: BP 127/59
[2018-06-14] MEDS: LOSARTAN POTASSIUM 50 MG TABLET PO SCH (09:23)
[2018-06-14] MEDS: FERROUS SULFATE 325MG TABLET PO SCH ×4 (09:23→17:43)
[2018-06-14 12:00] VITALS: BP 109/55
[2018-06-14 16:00] VITALS: BP 111/47
[2018-06-14 20:00] VITALS: BP 123/50
[2018-06-15] VITALS: BP 121/55
[2018-06-15] MEDS: DEXT 5% WATER + KCL 20MEQ/L 1,000 ML IV SCH (00:01)
[2018-06-15] MEDS: PIPERACILLIN/TAZ 3.375G PREMIX 50 ML IV SCH ×4 (00:02→17:20)
[2018-06-15] MEDS: IPRATROPIUM/ALBUTEROL 0.5-3(2.5)MG/3ML NEB HHN SCH ×4 (01:14→20:48)
[2018-06-15 04:00] VITALS: BP 134/68
[2018-06-15 08:00] VITALS: BP_SYST 123
[2018-06-15 08:09] LABS: HEMATOCRIT. 32.7 % (36.0-48.0); HEMOGLOBIN. 10.4 g/dL (12.0-16.0); MEAN CORPUSCULAR VOLUME 79.1 fL (81.0-99.0); MEAN PLATELET VOLUME 7.2 fl (7.4-10.4); PLATELET 359 x1000/uL (130-400); RED BLOOD CELL COUNT 4.13 mill/uL (4.2-5.4); RED CELL DISTRIBUTION WIDTH 17.3 % (11.6-14.6)
[2018-06-15] MEDS: LOSARTAN POTASSIUM 50 MG TABLET PO SCH (08:10)
[2018-06-15] MEDS: FERROUS SULFATE 325MG TABLET PO SCH ×3 (08:10→17:29)
[2018-06-15 09:10] LABS: CHLORIDE 117 mEq/L (98-107)
[2018-06-15] MEDS ORDERED: POTASSIUM CHLORIDE 20MEQ/PACKET GT NR ×2 (11:51→20:00)
[2018-06-15 12:00] VITALS: BP 120/81
[2018-06-15] MEDS: SODIUM CHL 0.45% + KCL 20MEQ/L 1,000 ML IV SCH (15:25)
[2018-06-15 16:00] VITALS: BP 126/88
[2018-06-15 20:00] VITALS: BP 122/53
[2018-06-16] VITALS: BP 103/49
[2018-06-16] MEDS: PIPERACILLIN/TAZ 3.375G PREMIX 50 ML IV SCH ×4 (01:02→16:18)
[2018-06-16] MEDS: IPRATROPIUM/ALBUTEROL 0.5-3(2.5)MG/3ML NEB HHN SCH ×4 (02:14→20:53)
[2018-06-16 04:00] VITALS: BP 112/58
[2018-06-16 06:33] LABS: CHLORIDE 119 mEq/L (98-107); HEMATOCRIT. 31.1 % (36.0-48.0); HEMOGLOBIN. 9.9 g/dL (12.0-16.0); MEAN CORPUSCULAR VOLUME 78.8 fL (81.0-99.0); MEAN PLATELET VOLUME 7.4 fl (7.4-10.4); PLATELET 317 x1000/uL (130-400); RED BLOOD CELL COUNT 3.94 mill/uL (4.2-5.4); RED CELL DISTRIBUTION WIDTH 17.2 % (11.6-14.6)
[2018-06-16 07:59] VITALS: BP 118/62
[2018-06-16] MEDS: LOSARTAN POTASSIUM 50 MG TABLET PO SCH (08:10)
[2018-06-16] MEDS: FERROUS SULFATE 325MG TABLET PO SCH ×3 (08:10→16:19)
[2018-06-16] MEDS: SODIUM CHL 0.45% + KCL 20MEQ/L 1,000 ML IV SCH (08:13)
[2018-06-16 12:00] VITALS: BP 147/67
[2018-06-16] MEDS ORDERED: ENOXAPARIN 30MG/0.3ML SYR SUBCUT SCH (13:19)
[2018-06-16 14:16] LABS: PLATELET ESTIMATE NORMAL
[2018-06-16] MEDS ORDERED: SODIUM CHLORIDE 0.9% 10ML VIAL ONE (14:20)
[2018-06-16 16:00] VITALS: BP 134/69
[2018-06-16] MEDS ORDERED: PAMIDRONATE DISODIUM 30 MG in SODIUM CHLORIDE 0.9% 500 ML IV NR ×2 (17:00→22:00)
[2018-06-16] MEDS: ACETAMINOPHEN 325MG TABLET PO PRN (19:17)
[2018-06-16 19:31] LABS: PLATELET ESTIMATE NORMAL
[2018-06-16 20:00] VITALS: BP 140/83
[2018-06-16] MEDS ORDERED: DEXTROSE 50% WATER 50ML SYRINGE IV PRN (20:15)
[2018-06-16] MEDS: INSULIN LISPRO 100 UNITS/ML SUBCUT SCH (21:00)
[2018-06-16] MEDS: BLOOD SUGAR DIAGNOSTIC STRIP TEST SCH (21:03)
[2018-06-17] VITALS: BP 130/62
[2018-06-17] MEDS: IPRATROPIUM/ALBUTEROL 0.5-3(2.5)MG/3ML NEB HHN SCH ×3 (03:12→21:11)
[2018-06-17 04:00] VITALS: BP 157/76
[2018-06-17] MEDS: BLOOD SUGAR DIAGNOSTIC STRIP TEST SCH ×4 (05:55→21:00)
[2018-06-17 08:00] VITALS: BP 124/54
[2018-06-17] MEDS: CLOPIDOGREL 75MG TABLET PO SCH (10:39)
[2018-06-17] MEDS: FERROUS SULFATE 325MG TABLET PO SCH ×3 (10:39→18:10)
[2018-06-17] MEDS: LOSARTAN POTASSIUM 50 MG TABLET PO SCH (10:45)
[2018-06-17 12:00] VITALS: BP 126/59
[2018-06-17] MEDS: INSULIN LISPRO 100 UNITS/ML SUBCUT SCH ×3 (12:35→22:48)
[2018-06-17 16:00] VITALS: BP_SYST 134; BP_DIAS 63; BP_DIAS 68
[2018-06-17] MEDS: LEVOFLOXACIN 250MG TABLET PO SCH (18:02)
[2018-06-17 20:00] VITALS: BP 138/55
[2018-06-17] MEDS: ACETAMINOPHEN 325MG TABLET PO PRN (22:47)
[2018-06-18] VITALS: BP 138/55
[2018-06-18] MEDS: IPRATROPIUM/ALBUTEROL 0.5-3(2.5)MG/3ML NEB HHN SCH ×3 (02:22→14:53)
[2018-06-18 04:00] VITALS: BP 136/66
[2018-06-18 06:32] VITALS: BP 136/66
[2018-06-18] MEDS: BLOOD SUGAR DIAGNOSTIC STRIP TEST SCH ×2 (07:40→12:16)
[2018-06-18 08:00] VITALS: BP 138/68
[2018-06-18] MEDS: INSULIN LISPRO 100 UNITS/ML SUBCUT SCH ×2 (08:00→13:05)
[2018-06-18] MEDS: CLOPIDOGREL 75MG TABLET PO SCH (08:16)
[2018-06-18] MEDS: FERROUS SULFATE 325MG TABLET PO SCH (08:16)
[2018-06-18] MEDS: LOSARTAN POTASSIUM 50 MG TABLET PO SCH (08:16)
[2018-06-18] MEDS ORDERED: SULFAMETHOXAZOLE/TRIMETHOPRIM 800/160MG TABLET PO SCH (09:00)
[2018-06-18] MEDS: LEVOFLOXACIN 250MG TABLET PO SCH (11:00)
[2018-06-18 13:06] VITALS: BP 128/76
== END 2018-06-18 17:29 | disposition home health service (06) | DRG 871 ==
LOC: ER 11:39 → 7WST 14:58 → EDBEDREQ 15:01 → EDBEDREQTM 15:12 → ENRESERV 16:09 → 7WST 17:49
PROVIDERS: ADMIT Anesthesiology Critical Care Medicine; ATTEND Anesthesiology Critical Care Medicine
PROC: 0DH63UZ Insertion of Feeding Device into Stomach, Percutaneous Approach (ICD-10-PCS; principal; 2018-06-13)
DX: A41.9 Sepsis, unspecified organism (principal); E43 Unspecified severe protein-calorie malnutrition; J96.20 Acute and chronic respiratory failure, unspecified whether with hypoxia or hypercapnia; J69.0 Pneumonitis due to inhalation of food and vomit; E87.0 Hyperosmolality and hypernatremia; J44.1 Chronic obstructive pulmonary disease with (acute) exacerbation; I69.354 Hemiplegia and hemiparesis following cerebral infarction affecting left non-dominant side; R65.20 Severe sepsis without septic shock; E11.65 Type 2 diabetes mellitus with hyperglycemia; C32.9 Malignant neoplasm of larynx, unspecified; D50.9 Iron deficiency anemia, unspecified; E83.52 Hypercalcemia; E78.00 Pure hypercholesterolemia, unspecified; K21.0 Gastro-esophageal reflux disease with esophagitis; D63.0 Anemia in neoplastic disease; E78.5 Hyperlipidemia, unspecified; E86.0 Dehydration; E87.6 Hypokalemia; B95.2 Enterococcus as the cause of diseases classified elsewhere; F17.200 Nicotine dependence, unspecified, uncomplicated; Z96.651 Presence of right artificial knee joint; I10 Essential (primary) hypertension; I25.10 Atherosclerotic heart disease of native coronary artery without angina pectoris; K29.70 Gastritis, unspecified, without bleeding; K44.9 Diaphragmatic hernia without obstruction or gangrene; M19.90 Unspecified osteoarthritis, unspecified site; M47.817 Spondylosis without myelopathy or radiculopathy, lumbosacral region; Z90.710 Acquired absence of both cervix and uterus; Z92.3 Personal history of irradiation; Z93.0 Tracheostomy status; Z99.3 Dependence on wheelchair; Z88.2 Allergy status to sulfonamides; Z79.899 Other long term (current) drug therapy
CPT/HCPCS: 36415; 70492; 71045; 71270; 72170; 74230; 80048; 80202; 82962; 83540; 83550; 83605; 83880; 83970; 84132; 84134; 84145; 84484; 85651; 87070; 87077; 87186; 92610; 92611; 93005; 93970; 94640; 94660; 96361; 96365; 96375; 97163; 97167; 97530; 99152; 99291; C9113; J1650; J1815; J2250; J2430; J2543; J3010; J3370; J3480; J7030; J7040; J7050; J7060; J7131; J7620; Q9967; G0500

== ENCOUNTER 2018-06-21 19:23 | Inpatient (IN) | payer MEDICARE, MEDICAID ==
[~2018-06-21] VITALS: Ht 172.7 cm; Wt 71.2 kg
[2018-06-21] MEDS ORDERED: VANCOMYCIN 1 G PREMIX 200 ML IV STA (19:28)
[2018-06-21] MEDS ORDERED: CEFEPIME 1,000 MG in DEXTROSE 5% WATER 50 ML IV STA (19:28)
[2018-06-21] MEDS ORDERED: SODIUM CHLORIDE 0.9% 1,000 ML IV ONE ×2 (19:30)
[2018-06-21 19:41] LABS: BG BASE EXCESS 10.6 mmol/L (-2.0-2.0); BG CARBOXYHEMOGLOBIN 0.4 % (0.5-1.5); BG DEOXYHEMOGLOBIN 12.4 % (0.0-5.0); BG FRACTION INSPIRED OXYGEN 100; BG HCO3 ACT 34.5 mmol/L (22.0-26.0); BG METHEMOGLOBIN 0.1 % (0.0-1.5); BG OXYGEN SATURATION 87.5 % (92.0-98.5); BG OXYHEMOGLOBIN 87.1 % (94.0-97.0); BG PCO2 43.1 mmHg (35.0-45.0); BG PH 7.521 (7.350-7.450); BG PO2 54.9 mmHg (75.0-100.0); BG SAMPLE SITE LEFT BRACHIAL; BG TOTAL HEMOGLOBIN 11.2 g/dL (12.0-18.0); BG VENT MODE MASK - NRB
[2018-06-21 20:19] LABS: CHLORIDE 117 mEq/L (98-107)
[2018-06-21 20:20] LABS: HEMATOCRIT. 34.6 % (36.0-48.0); HEMOGLOBIN. 10.6 g/dL (12.0-16.0); MEAN CORPUSCULAR HEMOGLOBIN 24.2 pg (28.0-32.0); MEAN CORPUSCULAR VOLUME 79.3 fL (81.0-99.0); MEAN PLATELET VOLUME 8.5 fl (7.4-10.4); PLATELET 400 x1000/uL (130-400); RED BLOOD CELL COUNT 4.37 mill/uL (4.2-5.4); RED CELL DISTRIBUTION WIDTH 18.4 % (11.6-14.6)
[2018-06-21 20:27] LABS: INR 1.1; PROTHROMBIN TIME 11.5 sec (9.1-11.1)
[2018-06-21 20:38] LABS: PLATELET ESTIMATE NORMAL
[2018-06-21] MEDS ORDERED: NOREPINEPHRINE 4MG/250ML PMX 250 ML IV NR (20:45)
[2018-06-21] MEDS ORDERED: NOREPINEPHRINE 4MG/250ML PMX 250 ML IV ONE ×2 (20:45→23:00)
[2018-06-21] MEDS ORDERED: ASPIRIN 300MG SUPP PR ONE (22:45)
[2018-06-21 23:49] LABS: CLARITY URINE CLOUDY (CLEAR); COLOR URINE YELLOW (YELLOW); KETONES URINE TRACE (NEGATIVE); LEUKOCYTE ESTERASE URINE TRACE (NEGATIVE); NITRITE URINE NEGATIVE (NEGATIVE); OCCULT BLOOD URINE 2+ (NEGATIVE); PROTEIN URINE 1+ (NEGATIVE); SPECIFIC GRAVITY URINE 1.018 (1.005-1.030)
[2018-06-22] VITALS (72 sets, daily range): BP systolic 70–134; BP diastolic 37–70
[2018-06-22] MEDS: POTASSIUM CHLORIDE INJ 10 MEQ in DEXTROSE 5% WATER 1,000 ML IV NR ×2 (01:00→07:42)
[2018-06-22] MEDS ORDERED: NOREPINEPHRINE 4 MG in DEXTROSE 5% WATER 250 ML IV PRN (05:30)
[2018-06-22] MEDS ORDERED: NOREPINEPHRINE 8 MG in DEXT 5% WATER 492 ML IV PRN (05:45)
[2018-06-22 05:58] LABS: HEMATOCRIT. 33.8 % (36.0-48.0); HEMOGLOBIN. 10.1 g/dL (12.0-16.0); MEAN CORPUSCULAR HEMOGLOBIN 23.9 pg (28.0-32.0); MEAN CORPUSCULAR VOLUME 79.9 fL (81.0-99.0); MEAN PLATELET VOLUME 8.7 fl (7.4-10.4); PLATELET 339 x1000/uL (130-400); RED BLOOD CELL COUNT 4.23 mill/uL (4.2-5.4)
[2018-06-22 06:13] LABS: CHLORIDE 115 mEq/L (98-107)
[2018-06-22] MEDS ORDERED: INSULIN LISPRO 100 UNITS/ML SUBCUT SCH (08:00)
[2018-06-22] MEDS ORDERED: ZOSYN (PIPERACILLIN/TAZOBACTAM) XX SCH (08:00)
[2018-06-22] MEDS ORDERED: POTASSIUM CHLORIDE INJ 10 MEQ in DEXTROSE 5% WATER 1,000 ML IV SCH (08:00)
[2018-06-22] MEDS ORDERED: BLOOD SUGAR DIAGNOSTIC STRIP TEST SCH (08:00)
[2018-06-22 08:41] LABS: BG BASE EXCESS 8.2 mmol/L (-2.0-2.0); BG CARBOXYHEMOGLOBIN 0.1 % (0.5-1.5); BG DEOXYHEMOGLOBIN 3.1 % (0.0-5.0); BG FRACTION INSPIRED OXYGEN 80; BG HCO3 ACT 33.2 mmol/L (22.0-26.0); BG METHEMOGLOBIN 0.3 % (0.0-1.5); BG OXYGEN SATURATION 96.9 % (92.0-98.5); BG OXYHEMOGLOBIN 96.5 % (94.0-97.0); BG PCO2 48.3 mmHg (35.0-45.0); BG PH 7.455 (7.350-7.450); BG PO2 99.6 mmHg (75.0-100.0); BG SAMPLE SITE RIGHT BRACHIAL; BG TOTAL HEMOGLOBIN 10.4 g/dL (12.0-18.0); BG VENT MODE T-TUBE
[2018-06-22] MEDS: IPRATROPIUM/ALBUTEROL 0.5-3(2.5)MG/3ML NEB HHN SCH ×4 (08:46→20:36)
[2018-06-22] MEDS: PANTOPRAZOLE SODIUM 40 MG/VIAL IV SCH (08:57)
[2018-06-22] MEDS ORDERED: SODIUM CHLORIDE 0.45% 1,000 ML IV SCH (09:00)
[2018-06-22] MEDS ORDERED: KCL 20MEQ/100ML PREMIX 100 ML IV SCH (10:00)
[2018-06-22] MEDS: PIPERACILLIN/TAZ 2.25G PREMIX 50 ML IV SCH ×3 (10:35→21:22)
[2018-06-22 10:36] LABS: PLATELET ESTIMATE NORMAL
[2018-06-22] MEDS: BLOOD SUGAR DIAGNOSTIC STRIP TEST SCH ×2 (12:00→18:18)
[2018-06-22] MEDS: KETOROLAC 15MG/ML VIAL IV PRN (13:22)
[2018-06-22] MEDS: INSULIN LISPRO 100 UNITS/ML SUBCUT SCH ×2 (13:26→18:29)
[2018-06-22] MEDS: SODIUM CHL 0.45% + KCL 20MEQ/L 1,000 ML IV SCH ×2 (14:21→21:00)
[2018-06-22 16:30] LABS: INR 1.1; PARTIAL THROMBOPLASTIN TIME 30.1 sec (23.4-31.0); PROTHROMBIN TIME 11.1 sec (9.1-11.1)
[2018-06-22] MEDS ORDERED: VANCOMYCIN 1 G PREMIX 200 ML IV SCH (17:00)
[2018-06-22] MEDS ORDERED: POTASSIUM CHLORIDE INJ 40 MEQ in DEXT 5% WATER 250 ML IV SCH (18:00)
[2018-06-22] MEDS: NOREPINEPHRINE 16 MG in DEXT 5% WATER 484 ML IV PRN (18:31)
[2018-06-22] MEDS: INSULIN GLARGINE UD 100 UNITS/ML SYR SUBCUT SCH (21:23)
[2018-06-23] VITALS (87 sets, daily range): BP systolic 93–133; BP diastolic 38–72
[2018-06-23] MEDS: BLOOD SUGAR DIAGNOSTIC STRIP TEST SCH ×4 (00:09→17:03)
[2018-06-23] MEDS: INSULIN LISPRO 100 UNITS/ML SUBCUT SCH ×4 (00:19→17:03)
[2018-06-23] MEDS: IPRATROPIUM/ALBUTEROL 0.5-3(2.5)MG/3ML NEB HHN SCH ×6 (00:26→21:10)
[2018-06-23] MEDS: SODIUM CHL 0.45% + KCL 20MEQ/L 1,000 ML IV SCH ×3 (03:12→18:32)
[2018-06-23] MEDS: PIPERACILLIN/TAZ 2.25G PREMIX 50 ML IV SCH ×2 (03:12→09:08)
[2018-06-23 05:39] LABS: HEMATOCRIT. 30.2 % (36.0-48.0); HEMOGLOBIN. 9.2 g/dL (12.0-16.0); MEAN CORPUSCULAR HEMOGLOBIN 24.1 pg (28.0-32.0); MEAN CORPUSCULAR VOLUME 79.3 fL (81.0-99.0); MEAN PLATELET VOLUME 8.7 fl (7.4-10.4); PLATELET 281 x1000/uL (130-400); RED BLOOD CELL COUNT 3.81 mill/uL (4.2-5.4); RED CELL DISTRIBUTION WIDTH 17.9 % (11.6-14.6)
[2018-06-23 05:54] LABS: PHOSPHORUS 2.5 mg/dL (2.5-4.9)
[2018-06-23] MEDS: NOREPINEPHRINE 16 MG in DEXT 5% WATER 484 ML IV PRN (07:42)
[2018-06-23 07:55] LABS: BG BASE EXCESS 4.5 mmol/L (-2.0-2.0); BG FRACTION INSPIRED OXYGEN 80; BG HCO3 ACT 30.4 mmol/L (22.0-26.0); BG METHEMOGLOBIN 0.4 % (0.0-1.5); BG OXYHEMOGLOBIN 98.6 % (94.0-97.0); BG PCO2 51.9 mmHg (35.0-45.0); BG PH 7.385 (7.350-7.450); BG PO2 177.2 mmHg (75.0-100.0); BG SAMPLE SITE RIGHT BRACHIAL; BG TOTAL HEMOGLOBIN 9.5 g/dL (12.0-18.0); BG VENT MODE MASK - AEROSOL
[2018-06-23] MEDS: PANTOPRAZOLE SODIUM 40 MG/VIAL IV SCH (08:37)
[2018-06-23 09:24] LABS: PLATELET ESTIMATE NORMAL
[2018-06-23] MEDS ORDERED: SODIUM BICARBONATE 4% (2.4MEQ) 5ML VIAL IV ONE (10:05)
[2018-06-23 14:09] LABS: BG BASE EXCESS 1.8 mmol/L (-2.0-2.0); BG CARBOXYHEMOGLOBIN 0.3 % (0.5-1.5); BG DEOXYHEMOGLOBIN 5.6 % (0.0-5.0); BG FRACTION INSPIRED OXYGEN 60; BG HCO3 ACT 25.6 mmol/L (22.0-26.0); BG OXYGEN SATURATION 94.4 % (92.0-98.5); BG OXYHEMOGLOBIN 94.1 % (94.0-97.0); BG PCO2 36.9 mmHg (35.0-45.0); BG PH 7.459 (7.350-7.450); BG PO2 73.8 mmHg (75.0-100.0); BG SAMPLE SITE RIGHT BRACHIAL; BG TOTAL HEMOGLOBIN 9.2 g/dL (12.0-18.0); BG VENT MODE MASK - AEROSOL
[2018-06-23] MEDS: PIPERACILLIN/TAZ 3.375G PREMIX 50 ML IV SCH ×2 (15:10→21:52)
[2018-06-23] MEDS: DEXTROSE 50% WATER 50ML SYRINGE IV PRN (17:06)
[2018-06-23] MEDS ORDERED: VANCOMYCIN 1 G PREMIX 200 ML IV SCH (18:00)
[2018-06-23] MEDS: KETOROLAC 15MG/ML VIAL IV PRN (21:51)
[2018-06-23] MEDS: INSULIN GLARGINE UD 100 UNITS/ML SYR SUBCUT SCH (21:55)
[2018-06-24] VITALS (87 sets, daily range): BP systolic 84–125; BP diastolic 37–97
[2018-06-24] MEDS: IPRATROPIUM/ALBUTEROL 0.5-3(2.5)MG/3ML NEB HHN SCH ×5 (00:22→20:43)
[2018-06-24] MEDS: PIPERACILLIN/TAZ 3.375G PREMIX 50 ML IV SCH ×4 (04:27→22:36)
[2018-06-24] MEDS: SODIUM CHL 0.45% + KCL 20MEQ/L 1,000 ML IV SCH ×3 (04:28→22:37)
[2018-06-24 05:28] LABS: HEMATOCRIT. 24.7 % (36.0-48.0); HEMOGLOBIN. 7.6 g/dL (12.0-16.0); MEAN CORPUSCULAR HEMOGLOBIN 24.5 pg (28.0-32.0); MEAN CORPUSCULAR VOLUME 79.2 fL (81.0-99.0); MEAN PLATELET VOLUME 8.7 fl (7.4-10.4); PLATELET 214 x1000/uL (130-400); RED BLOOD CELL COUNT 3.11 mill/uL (4.2-5.4); RED CELL DISTRIBUTION WIDTH 18.1 % (11.6-14.6)
[2018-06-24 05:56] LABS: PHOSPHORUS 2.2 mg/dL (2.5-4.9)
[2018-06-24] MEDS: BLOOD SUGAR DIAGNOSTIC STRIP TEST SCH ×4 (06:07→17:25)
[2018-06-24] MEDS: INSULIN LISPRO 100 UNITS/ML SUBCUT SCH ×4 (06:10→17:25)
[2018-06-24] MEDS: NOREPINEPHRINE 16 MG in DEXT 5% WATER 484 ML IV PRN (06:41)
[2018-06-24 09:14] LABS: BG BASE EXCESS -1.4 mmol/L (-2.0-2.0); BG CARBOXYHEMOGLOBIN 0.1 % (0.5-1.5); BG DEOXYHEMOGLOBIN 0.9 % (0.0-5.0); BG FRACTION INSPIRED OXYGEN 70; BG HCO3 ACT 23.6 mmol/L (22.0-26.0); BG METHEMOGLOBIN 0.1 % (0.0-1.5); BG OXYGEN SATURATION 99.1 % (92.0-98.5); BG OXYHEMOGLOBIN 98.9 % (94.0-97.0); BG PCO2 40.6 mmHg (35.0-45.0); BG PH 7.382 (7.350-7.450); BG PO2 190.2 mmHg (75.0-100.0); BG SAMPLE SITE RIGHT BRACHIAL; BG TOTAL HEMOGLOBIN 8.5 g/dL (12.0-18.0); BG VENT MODE T-TUBE
[2018-06-24 09:30] LABS: PLATELET ESTIMATE NORMAL
[2018-06-24] MEDS: PANTOPRAZOLE SODIUM 40 MG/VIAL IV SCH (11:10)
[2018-06-24] MEDS ORDERED: POTASSIUM PHOS,M-BASIC-D-BASIC 15 MMOL in SODIUM CHLORIDE 0.9% 245 ML IV NR (11:30)
[2018-06-24] MEDS: KETOROLAC 15MG/ML VIAL IV PRN (12:21)
[2018-06-24] MEDS: VANCOMYCIN 750 MG PREMIX 150 ML IV SCH (17:42)
[2018-06-24] MEDS: INSULIN GLARGINE UD 100 UNITS/ML SYR SUBCUT SCH (22:41)
[2018-06-25] VITALS (88 sets, daily range): BP systolic 85–131; BP diastolic 36–87
[2018-06-25] MEDS: IPRATROPIUM/ALBUTEROL 0.5-3(2.5)MG/3ML NEB HHN SCH ×6 (00:39→20:05)
[2018-06-25] MEDS: INSULIN LISPRO 100 UNITS/ML SUBCUT SCH ×4 (00:45→17:51)
[2018-06-25] MEDS: BLOOD SUGAR DIAGNOSTIC STRIP TEST SCH ×5 (00:47→23:27)
[2018-06-25] MEDS: ACETAMINOPHEN 650MG/20.3ML UDC PO PRN (01:19)
[2018-06-25] MEDS: PIPERACILLIN/TAZ 3.375G PREMIX 50 ML IV SCH ×4 (04:08→21:41)
[2018-06-25 06:34] LABS: HEMATOCRIT. 23.1 % (36.0-48.0); HEMOGLOBIN. 7.3 g/dL (12.0-16.0); MEAN CORPUSCULAR HEMOGLOBIN 24.7 pg (28.0-32.0); MEAN CORPUSCULAR VOLUME 78.7 fL (81.0-99.0); MEAN PLATELET VOLUME 8.8 fl (7.4-10.4); PLATELET 177 x1000/uL (130-400); RED BLOOD CELL COUNT 2.93 mill/uL (4.2-5.4); RED CELL DISTRIBUTION WIDTH 18.2 % (11.6-14.6)
[2018-06-25 06:55] LABS: CHLORIDE 117 mEq/L (98-107)
[2018-06-25 07:08] LABS: PHOSPHORUS 2.4 mg/dL (2.5-4.9)
[2018-06-25 07:49] LABS: BG BASE EXCESS -1.8 mmol/L (-2.0-2.0); BG CARBOXYHEMOGLOBIN 0.6 % (0.5-1.5); BG DEOXYHEMOGLOBIN 1.3 % (0.0-5.0); BG FRACTION INSPIRED OXYGEN 60; BG HCO3 ACT 22.4 mmol/L (22.0-26.0); BG OXYGEN SATURATION 98.7 % (92.0-98.5); BG OXYHEMOGLOBIN 98.1 % (94.0-97.0); BG PCO2 35.2 mmHg (35.0-45.0); BG PH 7.421 (7.350-7.450); BG PO2 139.5 mmHg (75.0-100.0); BG SAMPLE SITE RIGHT BRACHIAL; BG TOTAL HEMOGLOBIN 7.7 g/dL (12.0-18.0); BG VENT MODE MASK - AEROSOL
[2018-06-25] MEDS: PANTOPRAZOLE SODIUM 40 MG/VIAL IV SCH (08:49)
[2018-06-25 09:01] LABS: PLATELET ESTIMATE NORMAL
[2018-06-25] MEDS ORDERED: POTASSIUM PHOS,M-BASIC-D-BASIC 15 MMOL in DEXT 5% WATER 245 ML IV NR (12:00)
[2018-06-25] MEDS: VANCOMYCIN 750 MG PREMIX 150 ML IV SCH (12:45)
[2018-06-25] MEDS: SODIUM CHLORIDE 0.45% 1,000 ML IV SCH (12:45)
[2018-06-25] MEDS: FLUCONAZOLE 400MG/200ML BAG 200 ML IV SCH (16:33)
[2018-06-25] MEDS: INSULIN GLARGINE UD 100 UNITS/ML SYR SUBCUT SCH (22:00)
[2018-06-26] VITALS (51 sets, daily range): BP systolic 86–121; BP diastolic 39–66
[2018-06-26] MEDS: IPRATROPIUM/ALBUTEROL 0.5-3(2.5)MG/3ML NEB HHN SCH ×6 (00:34→21:05)
[2018-06-26] MEDS: PIPERACILLIN/TAZ 3.375G PREMIX 50 ML IV SCH ×4 (03:28→21:21)
[2018-06-26] MEDS: VANCOMYCIN 750 MG PREMIX 150 ML IV SCH ×2 (05:40→23:51)
[2018-06-26] MEDS: BLOOD SUGAR DIAGNOSTIC STRIP TEST SCH ×4 (05:53→23:51)
[2018-06-26 05:54] LABS: HEMATOCRIT. 24.1 % (36.0-48.0); HEMOGLOBIN. 7.4 g/dL (12.0-16.0); MEAN CORPUSCULAR HEMOGLOBIN 24.8 pg (28.0-32.0); MEAN CORPUSCULAR VOLUME 80.9 fL (81.0-99.0); MEAN PLATELET VOLUME 8.5 fl (7.4-10.4); PLATELET 170 x1000/uL (130-400); RED BLOOD CELL COUNT 2.98 mill/uL (4.2-5.4); RED CELL DISTRIBUTION WIDTH 18.3 % (11.6-14.6)
[2018-06-26] MEDS: INSULIN LISPRO 100 UNITS/ML SUBCUT SCH ×5 (05:54→23:51)
[2018-06-26 06:05] LABS: CHLORIDE 118 mEq/L (98-107)
[2018-06-26 06:13] LABS: PHOSPHORUS 2.8 mg/dL (2.5-4.9)
[2018-06-26 07:55] LABS: NUCLEATED RED BLOOD CELLS 1 /100 WBC
[2018-06-26 07:56] LABS: PLATELET ESTIMATE NORMAL
[2018-06-26] MEDS: PANTOPRAZOLE SODIUM 40 MG/VIAL IV SCH (08:37)
[2018-06-26] MEDS: SODIUM CHLORIDE 0.45% 1,000 ML IV SCH ×3 (08:37→23:54)
[2018-06-26] MEDS: KETOROLAC 15MG/ML VIAL IV PRN (13:11)
[2018-06-26] MEDS: FLUCONAZOLE 400MG/200ML BAG 200 ML IV SCH (17:20)
[2018-06-26] MEDS: DEXTROSE 50% WATER 50ML SYRINGE IV PRN (19:02)
[2018-06-26] MEDS: INSULIN GLARGINE UD 100 UNITS/ML SYR SUBCUT SCH (21:42)
[2018-06-27] VITALS (12 sets, daily range): BP systolic 104–121; BP diastolic 47–62
[2018-06-27] MEDS: IPRATROPIUM/ALBUTEROL 0.5-3(2.5)MG/3ML NEB HHN SCH ×7 (00:34→23:56)
[2018-06-27] MEDS: PIPERACILLIN/TAZ 3.375G PREMIX 50 ML IV SCH ×4 (03:44→20:55)
[2018-06-27] MEDS: SODIUM CHLORIDE 0.45% 1,000 ML IV SCH ×2 (05:46→18:00)
[2018-06-27] MEDS: INSULIN LISPRO 100 UNITS/ML SUBCUT SCH ×3 (06:00→18:00)
[2018-06-27] MEDS: BLOOD SUGAR DIAGNOSTIC STRIP TEST SCH ×3 (06:00→18:00)
[2018-06-27 06:38] LABS: CHLORIDE 118 mEq/L (98-107)
[2018-06-27] MEDS: PANTOPRAZOLE SODIUM 40 MG/VIAL IV SCH (09:13)
[2018-06-27] MEDS: FLUCONAZOLE 400MG/200ML BAG 200 ML IV SCH (16:51)
[2018-06-27] MEDS: VANCOMYCIN 750 MG PREMIX 150 ML IV SCH (17:57)
[2018-06-28] VITALS (15 sets, daily range): BP systolic 107–135; BP diastolic 52–85
[2018-06-28] MEDS: INSULIN GLARGINE UD 100 UNITS/ML SYR SUBCUT SCH ×2 (00:30→22:11)
[2018-06-28] MEDS: IPRATROPIUM/ALBUTEROL 0.5-3(2.5)MG/3ML NEB HHN SCH ×5 (03:52→20:42)
[2018-06-28] MEDS: PIPERACILLIN/TAZ 3.375G PREMIX 50 ML IV SCH ×5 (04:19→23:15)
[2018-06-28] MEDS: INSULIN LISPRO 100 UNITS/ML SUBCUT SCH ×4 (05:46→18:00)
[2018-06-28] MEDS: BLOOD SUGAR DIAGNOSTIC STRIP TEST SCH ×4 (05:46→18:30)
[2018-06-28 07:02] LABS: MEAN CORPUSCULAR HEMOGLOBIN 24.4 pg (28.0-32.0); MEAN CORPUSCULAR VOLUME 78.6 fL (81.0-99.0); MEAN PLATELET VOLUME 8.5 fl (7.4-10.4); PLATELET 215 x1000/uL (130-400); RED BLOOD CELL COUNT 2.74 mill/uL (4.2-5.4); RED CELL DISTRIBUTION WIDTH 18.3 % (11.6-14.6)
[2018-06-28 07:27] LABS: CHLORIDE 114 mEq/L (98-107)
[2018-06-28 07:52] LABS: HEMATOCRIT. 21.6 % (36.0-48.0); HEMOGLOBIN. 6.7 g/dL (12.0-16.0)
[2018-06-28] MEDS: SODIUM CHLORIDE 0.45% 1,000 ML IV SCH ×2 (07:59→21:03)
[2018-06-28] MEDS: PANTOPRAZOLE SODIUM 40 MG/VIAL IV SCH (08:37)
[2018-06-28 10:06] LABS: PLATELET ESTIMATE NORMAL
[2018-06-28] MEDS: VANCOMYCIN 750 MG PREMIX 150 ML IV SCH (11:28)
[2018-06-28] MEDS: ACETAMINOPHEN 650MG/20.3ML UDC PO PRN (18:11)
[2018-06-28] MEDS: FLUCONAZOLE 400MG/200ML BAG 200 ML IV SCH (22:19)
[2018-06-28 22:45] LABS: HEMATOCRIT 25.9 % (36.0-48.0); HEMOGLOBIN 8.2 g/dL (12.0-16.0)
[2018-06-29] VITALS (12 sets, daily range): BP systolic 105–135; BP diastolic 55–71
[2018-06-29] MEDS: BLOOD SUGAR DIAGNOSTIC STRIP TEST SCH ×4 (00:07→17:28)
[2018-06-29] MEDS: IPRATROPIUM/ALBUTEROL 0.5-3(2.5)MG/3ML NEB HHN SCH ×6 (00:52→20:05)
[2018-06-29] MEDS: SODIUM CHLORIDE 0.45% 1,000 ML IV SCH ×3 (02:01→22:49)
[2018-06-29] MEDS: PIPERACILLIN/TAZ 3.375G PREMIX 50 ML IV SCH ×4 (03:39→22:23)
[2018-06-29] MEDS: DEXTROSE 50% WATER 50ML SYRINGE IV PRN (05:39)
[2018-06-29] MEDS: VANCOMYCIN 750 MG PREMIX 150 ML IV SCH (05:39)
[2018-06-29] MEDS: INSULIN LISPRO 100 UNITS/ML SUBCUT SCH ×4 (06:00→17:34)
[2018-06-29] MEDS: PANTOPRAZOLE SODIUM 40 MG/VIAL IV SCH (10:08)
[2018-06-29] MEDS: FLUCONAZOLE 400MG/200ML BAG 200 ML IV SCH (15:20)
[2018-06-29] MEDS: ACETAMINOPHEN 650MG/20.3ML UDC PO PRN (16:33)
[2018-06-29] MEDS: INSULIN GLARGINE UD 100 UNITS/ML SYR SUBCUT SCH (22:26)
[2018-06-30] VITALS (12 sets, daily range): BP systolic 99–143; BP diastolic 49–79
[2018-06-30] MEDS: IPRATROPIUM/ALBUTEROL 0.5-3(2.5)MG/3ML NEB HHN SCH ×6 (00:07→20:21)
[2018-06-30] MEDS: BLOOD SUGAR DIAGNOSTIC STRIP TEST SCH ×4 (00:40→18:04)
[2018-06-30] MEDS: PIPERACILLIN/TAZ 3.375G PREMIX 50 ML IV SCH ×4 (05:48→22:06)
[2018-06-30] MEDS: INSULIN LISPRO 100 UNITS/ML SUBCUT SCH ×4 (05:48→18:00)
[2018-06-30 08:03] LABS: HEMATOCRIT. 28.8 % (36.0-48.0); HEMOGLOBIN. 8.8 g/dL (12.0-16.0); MEAN CORPUSCULAR HEMOGLOBIN 24.1 pg (28.0-32.0); MEAN CORPUSCULAR VOLUME 79.2 fL (81.0-99.0); MEAN PLATELET VOLUME 7.9 fl (7.4-10.4); PLATELET 317 x1000/uL (130-400); RED BLOOD CELL COUNT 3.64 mill/uL (4.2-5.4); RED CELL DISTRIBUTION WIDTH 17.8 % (11.6-14.6)
[2018-06-30] MEDS: PANTOPRAZOLE SODIUM 40 MG/VIAL IV SCH (08:08)
[2018-06-30] MEDS: SODIUM CHLORIDE 0.45% 1,000 ML IV SCH ×2 (08:08→16:42)
[2018-06-30 08:28] LABS: CHLORIDE 114 mEq/L (98-107)
[2018-06-30 08:46] LABS: TOTAL IRON BINDING CAPACITY 194 ug/dL (250-450)
[2018-06-30 10:58] LABS: PLATELET ESTIMATE NORMAL
[2018-06-30] MEDS: FLUCONAZOLE 400MG/200ML BAG 200 ML IV SCH (16:42)
[2018-06-30] MEDS: INSULIN GLARGINE UD 100 UNITS/ML SYR SUBCUT SCH (22:40)
[2018-07-01] VITALS (12 sets, daily range): BP systolic 103–119; BP diastolic 47–57
[2018-07-01] MEDS: IPRATROPIUM/ALBUTEROL 0.5-3(2.5)MG/3ML NEB HHN SCH ×6 (00:20→19:58)
[2018-07-01] MEDS: BLOOD SUGAR DIAGNOSTIC STRIP TEST SCH ×4 (00:23→18:00)
[2018-07-01] MEDS: INSULIN LISPRO 100 UNITS/ML SUBCUT SCH ×4 (00:26→18:00)
[2018-07-01] MEDS: PIPERACILLIN/TAZ 3.375G PREMIX 50 ML IV SCH ×4 (03:38→22:39)
[2018-07-01] MEDS: SODIUM CHLORIDE 0.45% 1,000 ML IV SCH (03:39)
[2018-07-01] MEDS: PANTOPRAZOLE SODIUM 40 MG/VIAL IV SCH (08:43)
[2018-07-01] MEDS: ACETAMINOPHEN 650MG/20.3ML UDC PO PRN ×2 (15:28→19:11)
[2018-07-01] MEDS: FLUCONAZOLE 400MG/200ML BAG 200 ML IV SCH (16:00)
[2018-07-01] MEDS: INSULIN GLARGINE UD 100 UNITS/ML SYR SUBCUT SCH (22:46)
[2018-07-02] VITALS (12 sets, daily range): BP systolic 89–131; BP diastolic 45–60
[2018-07-02] MEDS: IPRATROPIUM/ALBUTEROL 0.5-3(2.5)MG/3ML NEB HHN SCH ×6 (00:24→20:36)
[2018-07-02] MEDS: PIPERACILLIN/TAZ 3.375G PREMIX 50 ML IV SCH ×3 (05:27→18:24)
[2018-07-02] MEDS: INSULIN LISPRO 100 UNITS/ML SUBCUT SCH ×4 (05:29→18:00)
[2018-07-02] MEDS: BLOOD SUGAR DIAGNOSTIC STRIP TEST SCH ×4 (05:30→18:17)
[2018-07-02] MEDS: PANTOPRAZOLE SODIUM 40 MG/VIAL IV SCH (09:07)
[2018-07-02] MEDS: FLUCONAZOLE 400MG/200ML BAG 200 ML IV SCH (16:52)
[2018-07-02] MEDS ORDERED: KETOROLAC 15MG/ML VIAL IV PRN (20:56)
[2018-07-03] VITALS (16 sets, daily range): BP systolic 85–139; BP diastolic 37–68
[2018-07-03] MEDS: IPRATROPIUM/ALBUTEROL 0.5-3(2.5)MG/3ML NEB HHN SCH ×2 (00:46→04:40)
[2018-07-03] MEDS: BLOOD SUGAR DIAGNOSTIC STRIP TEST SCH ×2 (00:53→06:00)
[2018-07-03] MEDS: PIPERACILLIN/TAZ 3.375G PREMIX 50 ML IV SCH ×3 (00:57→10:00)
[2018-07-03] MEDS: INSULIN GLARGINE UD 100 UNITS/ML SYR SUBCUT SCH (00:58)
[2018-07-03] MEDS: INSULIN LISPRO 100 UNITS/ML SUBCUT SCH ×2 (00:58→06:23)
[2018-07-03 06:32] LABS: HEMATOCRIT. 28.3 % (36.0-48.0); HEMOGLOBIN. 8.1 g/dL (12.0-16.0); MEAN CORPUSCULAR HEMOGLOBIN 23.7 pg (28.0-32.0); MEAN CORPUSCULAR VOLUME 83.4 fL (81.0-99.0); MEAN PLATELET VOLUME 8.1 fl (7.4-10.4); PLATELET 464 x1000/uL (130-400); RED BLOOD CELL COUNT 3.39 mill/uL (4.2-5.4); RED CELL DISTRIBUTION WIDTH 19.2 % (11.6-14.6)
[2018-07-03] MEDS: PANTOPRAZOLE SODIUM 40 MG/VIAL IV SCH (09:00)
[2018-07-03] MEDS ORDERED: SODIUM CHLORIDE 0.9% 1,000 ML IV SCH (09:15)
[2018-07-03 10:08] LABS: BG BASE EXCESS -1.1 mmol/L (-2.0-2.0); BG CARBOXYHEMOGLOBIN 0.6 % (0.5-1.5); BG DEOXYHEMOGLOBIN 1.2 % (0.0-5.0); BG FRACTION INSPIRED OXYGEN 100; BG HCO3 ACT 25.5 mmol/L (22.0-26.0); BG METHEMOGLOBIN 0.5 % (0.0-1.5); BG OXYGEN SATURATION 98.8 % (92.0-98.5); BG OXYHEMOGLOBIN 97.7 % (94.0-97.0); BG PCO2 53.7 mmHg (35.0-45.0); BG PH 7.295 (7.350-7.450); BG SAMPLE SITE LEFT BRACHIAL; BG TIDAL VOLUME(mL) 500 mL; BG TOTAL HEMOGLOBIN 7.6 g/dL (12.0-18.0); BG VENT MODE VENT - A/C; BG VENT RATE 14 set
[2018-07-03] MEDS ORDERED: IPRATROPIUM/ALBUTEROL 0.5-3(2.5)MG/3ML NEB HHN PRN (10:30)
[2018-07-03 12:01] LABS: NUCLEATED RED BLOOD CELLS 1 /100 WBC; PLATELET ESTIMATE INCREASED
[2018-07-03] MEDS ORDERED: EPINEPHRINE 0.1MG/ML (1:10,000) 10ML SYR ONE (15:44)
== END 2018-07-03 13:49 | disposition expired | DRG 871 ==
LOC: ER 19:23 → CVICU 22:38 → EDBEDREQSVC 22:41 → EDBEDREQ 22:41 → EDBEDREQTM 22:41 → ENRESERV 06-22 04:05 → CVICU 06-24 17:12 → 5EST 06-26 16:24 → MICUSO 07-03 09:17
PROVIDERS: ADMIT Anesthesiology Critical Care Medicine; ATTEND Anesthesiology Critical Care Medicine
PROC: 5A1935Z Respiratory Ventilation, Less than 24 Consecutive Hours (ICD-10-PCS; principal; 2018-06-21)
PROC: 06H033Z Insertion of Infusion Device into Inferior Vena Cava, Percutaneous Approach (ICD-10-PCS; 2018-06-21)
PROC: B549ZZA Ultrasonography of Inferior Vena Cava, Guidance (ICD-10-PCS; 2018-06-21)
PROC: 0W993ZZ Drainage of Right Pleural Cavity, Percutaneous Approach (ICD-10-PCS; 2018-06-23)
PROC: 05HY33Z Insertion of Infusion Device into Upper Vein, Percutaneous Approach (ICD-10-PCS; 2018-06-24)
PROC: B54MZZA Ultrasonography of Right Upper Extremity Veins, Guidance (ICD-10-PCS; 2018-06-24)
PROC: 30233N1 Transfusion of Nonautologous Red Blood Cells into Peripheral Vein, Percutaneous Approach (ICD-10-PCS; 2018-06-28)
PROC: 0B21XFZ Change Tracheostomy Device in Trachea, External Approach (ICD-10-PCS; 2018-07-03)
PROC: 5A12012 Performance of Cardiac Output, Single, Manual (ICD-10-PCS; 2018-07-03)
PROC: 5A1935Z Respiratory Ventilation, Less than 24 Consecutive Hours (ICD-10-PCS; 2018-07-03)
DX: A41.59 Other Gram-negative sepsis (principal); L89.153 Pressure ulcer of sacral region, stage 3; E43 Unspecified severe protein-calorie malnutrition; R65.21 Severe sepsis with septic shock; J15.6 Pneumonia due to other Gram-negative bacteria; J96.21 Acute and chronic respiratory failure with hypoxia; G93.41 Metabolic encephalopathy; E87.0 Hyperosmolality and hypernatremia; E87.1 Hypo-osmolality and hyponatremia; C78.2 Secondary malignant neoplasm of pleura; J44.0 Chronic obstructive pulmonary disease with (acute) lower respiratory infection; Z99.11 Dependence on respirator [ventilator] status; J44.1 Chronic obstructive pulmonary disease with (acute) exacerbation; J91.0 Malignant pleural effusion; R64 Cachexia; N17.9 Acute kidney failure, unspecified; N39.0 Urinary tract infection, site not specified; M19.90 Unspecified osteoarthritis, unspecified site; Z66 Do not resuscitate; D63.0 Anemia in neoplastic disease; E83.52 Hypercalcemia; E11.65 Type 2 diabetes mellitus with hyperglycemia; Z51.5 Encounter for palliative care; R35.1 Nocturia; J32.9 Chronic sinusitis, unspecified; K21.0 Gastro-esophageal reflux disease with esophagitis; I46.9 Cardiac arrest, cause unspecified; M06.9 Rheumatoid arthritis, unspecified; E86.0 Dehydration; I10 Essential (primary) hypertension; R00.1 Bradycardia, unspecified; C32.9 Malignant neoplasm of larynx, unspecified; D50.9 Iron deficiency anemia, unspecified; E11.51 Type 2 diabetes mellitus with diabetic peripheral angiopathy without gangrene; G43.909 Migraine, unspecified, not intractable, without status migrainosus; E78.5 Hyperlipidemia, unspecified; E86.1 Hypovolemia; I45.10 Unspecified right bundle-branch block; Z87.01 Personal history of pneumonia (recurrent); Z87.891 Personal history of nicotine dependence; Z86.73 Personal history of transient ischemic attack (TIA), and cerebral infarction without residual deficits; Z92.3 Personal history of irradiation; Z90.710 Acquired absence of both cervix and uterus; Z88.2 Allergy status to sulfonamides; Z22.322 Carrier or suspected carrier of Methicillin resistant Staphylococcus aureus; Z68.23 Body mass index [BMI] 23.0-23.9, adult; I12.9 Hypertensive chronic kidney disease with stage 1 through stage 4 chronic kidney disease, or unspecified chronic kidney disease; N18.9 Chronic kidney disease, unspecified; E11.22 Type 2 diabetes mellitus with diabetic chronic kidney disease; B37.7 Candidal sepsis
CPT/HCPCS: 32555; 36415; 36569; 36600; 71045; 71250; 74176; 76937; 80048; 80202; 82375; 82805; 82962; 83540; 83550; 83605; 83615; 83735; 84100; 84145; 84484; 85014; 85018; 86850; 86900; 86920; 87070; 87106; 88108; 88312; 93005; 93970; 94002; 94640; 96365; 96366; 99291; A6261; C1725; C9113; J0692; J1450; J1815; J1885; J2543; J3370; J3480; J3490; J7030; J7040; J7050; J7060; J7070; J7620; P9016; A4315